=== PATIENT | female | born 1955 | race Caucasian/White ===

== ENCOUNTER 2019-05-01 15:11 | Emergency (ER) | payer MEDICAID ==
[~2019-05-01] VITALS: Ht 165.1 cm; Wt 53.5 kg
[2019-05-01 15:20] VITALS: BP 141/90
--- NOTE | 2019-05-01 15:31 | NUR ---
QING CLEMENT AT BEDSIDE FOR EVAL.
[2019-05-01] MEDS ORDERED: TRAMADOL HCL 50 MG TABLET ONE (15:40)
--- NOTE | 2019-05-01 15:45 | NUR ---
SAMPLE MAKER HAND AT BEDSIDE FOR XRAY.
[2019-05-01] MEDS ORDERED: TRAMADOL HCL 50 MG TABLET PO ONE (16:00)
--- NOTE | 2019-05-01 16:56 | NUR ---
CLINT WRAP APPLIED TO LEFT KNEE BY CATH LAB TECHNOLOGIST.
== END 2019-05-01 16:58 | disposition home or self-care (01) ==
LOC: ER 15:14
DX: S80.212A Abrasion, left knee, initial encounter (principal); M25.532 Pain in left wrist; M25.512 Pain in left shoulder; M06.9 Rheumatoid arthritis, unspecified; Z88.0 Allergy status to penicillin; W01.0XXA Fall on same level from slipping, tripping and stumbling without subsequent striking against object, initial encounter; Y93.89 Activity, other specified; Y92.89 Other specified places as the place of occurrence of the external cause; Y99.8 Other external cause status
CPT/HCPCS: 73030-TC; 73110; 73564-TC

== ENCOUNTER 2019-05-18 14:22 | Emergency (ER) | payer MEDICAID ==
--- NOTE | 2019-05-18 14:22 | NUR ---
PT CALLED TO TRIAGE, PT NOT IN WAITING ROOM
[2019-05-18] MEDS ORDERED: methylPREDNISolone SOD SUCC 125 MG/2ML VIAL IM ONE (16:00)
[2019-05-18] MEDS ORDERED: diphenhydrAMINE HCL 50 MG CAPSULE PO ONE (16:00)
[2019-05-18] MEDS ORDERED: FAMOTIDINE (20 MG) 20 MG TABLET PO ONE (16:00)
[2019-05-18] MEDS ORDERED: FAMOTIDINE (20 MG) 20 MG TABLET ONE (16:12)
[2019-05-18] MEDS ORDERED: diphenhydrAMINE HCL 50 MG CAPSULE ONE (16:12)
[2019-05-18] MEDS ORDERED: methylPREDNISolone SOD SUCC 125 MG/2ML VIAL ONE (16:12)
== END 2019-05-18 16:56 | disposition home or self-care (01) ==
LOC: ER 14:33
DX: R21 Rash and other nonspecific skin eruption (principal); M06.9 Rheumatoid arthritis, unspecified; Z88.0 Allergy status to penicillin
CPT/HCPCS: 96372; 99283; J2930; Q0163

== ENCOUNTER 2019-08-04 09:58 | Emergency (ER) | payer MEDICAID ==
[~2019-08-04] VITALS: Ht 157.5 cm; Wt 63.5 kg
[2019-08-04 10:04] VITALS: BP 124/82
--- NOTE | 2019-08-04 10:12 | NUR ---
Patient discharged to home in stable condition. Written and verbal after care instructions given. Patient verbalizes understanding of instruction.
== END 2019-08-04 10:12 | disposition home or self-care (01) ==
LOC: ER 09:58
DX: G89.29 Other chronic pain (principal); G35 Multiple sclerosis; Z76.0 Encounter for issue of repeat prescription; Z88.0 Allergy status to penicillin

== ENCOUNTER 2021-05-16 11:00 | Emergency (ER) | payer MEDICAID ==
[~2021-05-16] VITALS: Ht 165.1 cm; Wt 53.5 kg
--- NOTE | 2021-05-16 11:05 | NUR ---
BIBS THIS 65YO FEMALE WITH CHIEF COMPLAINT OF LEFT FLANK PAIN FOR 2 WEEKS. PT IS VITALLY STABLE, NKA, NEVER HAD COVID VACCINATION.
--- NOTE | 2021-05-16 11:15 | NUR ---
Dr Mack at for eval.
--- NOTE | 2021-05-16 11:30 | NUR ---
URINE COLLECTED AND SENT TO LAB
--- NOTE | 2021-05-16 11:47 | NUR ---
IV ESTABLISHED L WRSIT 20G. LABS DRAWN AND SENT. CONVERTED TO SALINE LOCK.
[2021-05-16 12:01] LABS: BASOPHILS # (AUTO) 0.1 K/uL (0.0-0.2); BASOPHILS % (AUTO) 0.5 % (0.0-2.0); EOSINOPHILS % (AUTO) 1.1 % (0.0-6.0); HEMATOCRIT 35 % (33-45); HEMOGLOBIN 11.5 g/dL (11.5-14.8); LYMPHOCYTES # (AUTO) 1.7 K/uL (0.8-4.8); LYMPHOCYTES % (AUTO) 15.9 % (20.0-44.0); MEAN CORPUSCULAR HGB CONC 33 g/dl (31.0-36.0); MEAN CORPUSCULAR VOLUME 89 fL (82-100); MONOCYTES # (AUTO) 0.8 K/uL (0.1-1.30); MONOCYTES % (AUTO) 8.1 % (2.0-12.0); NEUTROPHILS # (AUTO) 7.8 K/uL (1.8-8.9); NEUTROPHILS % (AUTO) 74.4 % (43.0-81.0); PLATELET COUNT (AUTO) 262 K/uL (150-450); WHITE BLOOD COUNT (AUTO) 10.5 K/uL (4.3-11.0)
[2021-05-16 12:22] LABS: CALCIUM, SERUM 8.8 mg/dL (8.5-10.1); CREATININE 0.7 mg/dL (0.6-1.3); POTASSIUM 4.3 mmol/L (3.5-5.1)
[2021-05-16 12:44] LABS: BILIRUBIN,URINE NEGATIVE (NEGATIVE); COLOR,URINE YELLOW (YELLOW); LEUKOCYTE ESTERASE ,URINE TRACE (NEGATIVE); NITRITE, URINE NEGATIVE (NEGATIVE); PH,URINE 5.5 (5.0-8.0); PROTEIN,URINE NEGATIVE (NEGATIVE); UGLUCOSE NEGATIVE (NEGATIVE); UROBILINOGEN,URINE 0.2 EU/dL (0.2)
[2021-05-16 13:16] LABS: BACTERIA,URINE Moderate /HPF (None Seen); HYALINE CASTS, URINE Few /LPF (None Seen); RBC,URINE 0-2 /HPF (0-2); SQUAMOUS EPITHELIAL CELL,UR Few /HPF (None Seen); WBC,URINE 0-3 /HPF (0-3)
--- NOTE | 2021-05-16 13:17 | NUR ---
IV removed. Catheter intact and site benign. Pressure and 4x4 applied to site. No bleeding noted.Patient discharged to home in stable condition. Written and verbal after care instructions given. Patient verbalizes understanding of instruction.
[2021-05-16 13:18] VITALS: BP 119/82
== END 2021-05-16 13:18 | disposition home or self-care (01) ==
LOC: ER 11:04
DX: R10.30 Lower abdominal pain, unspecified (principal); G35 Multiple sclerosis; M06.9 Rheumatoid arthritis, unspecified; G89.29 Other chronic pain; Z90.710 Acquired absence of both cervix and uterus; Z90.89 Acquired absence of other organs; Z88.0 Allergy status to penicillin
CPT/HCPCS: 36415; 80048-TC; 81001; 85025-TC; 87086-TC; 87186-TC

== ENCOUNTER 2021-05-25 11:09 | Inpatient (IN) | payer MEDICAID ==
[~2021-05-25] VITALS: Ht 165.1 cm; Wt 56.2 kg
--- NOTE | 2021-05-25 11:40 | NUR ---
PT CAME TO ER C/O WORSENING ABDOMINAL DISTENTION/DISCOMFORT AND FLANK PAIN X 1 MONTH, WORSE IN THE PAST 5 DAYS. PT REPORTS THAT IT IS CAUSING HER SOB. PT WAS SEEN HERE FOR SAME REASON 1 WEEK AGO. DENIES N/V. REPORTS "STOOL HAS TURNED YELLOWISH." AAOX4, BREATHING EVEN AND UNLABORED POX 97-98% ON RA. WILL CONTINUE TO MONITOR.
--- NOTE | 2021-05-25 11:45 | NUR ---
URINE SAMPLE OBTAINED AND SENT TO LAB
[2021-05-25 12:20] LABS: BASOPHILS % (AUTO) 0.2 % (0.0-2.0); EOSINOPHILS % (AUTO) 1.1 % (0.0-6.0); HEMATOCRIT 38 % (33-45); HEMOGLOBIN 12.4 g/dL (11.5-14.8); LYMPHOCYTES # (AUTO) 1.7 K/uL (0.8-4.8); LYMPHOCYTES % (AUTO) 16.5 % (20.0-44.0); MEAN CORPUSCULAR HGB CONC 33 g/dl (31.0-36.0); MEAN CORPUSCULAR VOLUME 88 fL (82-100); MONOCYTES # (AUTO) 0.9 K/uL (0.1-1.30); MONOCYTES % (AUTO) 8.6 % (2.0-12.0); NEUTROPHILS # (AUTO) 7.4 K/uL (1.8-8.9); NEUTROPHILS % (AUTO) 73.6 % (43.0-81.0); PLATELET COUNT (AUTO) 305 K/uL (150-450); RED BLOOD CELL COUNT(AUTO) 4.26 MIL/uL (4.0-5.2); WHITE BLOOD COUNT (AUTO) 10.1 K/uL (4.3-11.0)
[2021-05-25 12:27] LABS: BILIRUBIN,URINE NEGATIVE (NEGATIVE); COLOR,URINE DARK YELLOW (YELLOW); LEUKOCYTE ESTERASE ,URINE SMALL (NEGATIVE); NITRITE, URINE NEGATIVE (NEGATIVE); PH,URINE 5.5 (5.0-8.0); PROTEIN,URINE NEGATIVE (NEGATIVE); UGLUCOSE NEGATIVE (NEGATIVE); UROBILINOGEN,URINE 0.2 EU/dL (0.2)
[2021-05-25 12:42] LABS: CALCIUM, SERUM 10.3 mg/dL (8.5-10.1); CREATININE 0.8 mg/dL (0.6-1.3); POTASSIUM 4.2 mmol/L (3.5-5.1)
[2021-05-25 12:49] LABS: ALBUMIN 2.9 g/dL (3.4-5.0); BILIRUBIN,DIRECT 0.2 mg/dL (0.0-0.2); BILIRUBIN,TOTAL 0.5 mg/dL (0.2-1.0); TOTAL PROTEIN, SERUM 7.7 g/dL (6.4-8.2)
[2021-05-25 12:51] LABS: BACTERIA,URINE Few /HPF (None Seen); RBC,URINE 0-2 /HPF (0-2); SQUAMOUS EPITHELIAL CELL,UR Few /HPF (None Seen); WBC,URINE 20-30 /HPF (0-3)
--- NOTE | 2021-05-25 13:25 | NUR ---
PT TAKEN TO CT VIA TERI
[2021-05-25] MEDS ORDERED: CT SWABBABLE VALVE TRANS SET 1 EA INFUS.SET MC ONE (13:28)
[2021-05-25] MEDS ORDERED: IOHEXOL-300 100 ML VIAL IV ONE (13:28)
[2021-05-25] MEDS ORDERED: IV NS 0.9% 250 ML IV ONE (13:28)
--- NOTE | 2021-05-25 14:30 | NUR ---
MOVE SHEET SUBMITTED AND CALLED FOR MS BED.
--- NOTE | 2021-05-25 14:53 | NUR ---
[facility] CALLED DRY CURE WORKER PAGED.
[2021-05-25] MEDS ORDERED: OXYC5CAP18 PO (15:12)
[2021-05-25] MEDS ORDERED: MAGN84TA PO (15:12)
[2021-05-25] MEDS ORDERED: CALC500T52 PO (15:12)
[2021-05-25] MEDS ORDERED: CHOL100043 PO (15:12)
[2021-05-25] MEDS ORDERED: ZINC50TA69 PO (15:12)
[2021-05-25] MEDS ORDERED: MULT-1200 PO (15:12)
[2021-05-25] MEDS ORDERED: CYCL15CA23 PO (15:12)
[2021-05-25] MEDS ORDERED: ASPI-1420 PO (15:12)
[2021-05-25] MEDS ORDERED: OMEG1CAP PO (15:12)
[2021-05-25] MEDS ORDERED: CYAN-51 PO (15:12)
--- NOTE | 2021-05-25 15:12 | NUR ---
COVID SAMPLE OBTAINED AND SENT TO LAB
--- NOTE | 2021-05-25 17:27 | NUR ---
pt laying in bed, comfort measures in place. needs met
--- NOTE | 2021-05-25 18:04 | NUR ---
PT LAYING IN BED, NEEDS MET
[2021-05-25] MEDS ORDERED: ZOLPIDEM TARTRATE 5 MG TABLET PO PRN (18:30)
[2021-05-25] MEDS ORDERED: Z GUARD REMEDY 4 OZ OINT TP PRN (18:30)
[2021-05-25] MEDS ORDERED: ACETAMINOPHEN 325 MG TABLET PO PRN (18:30)
[2021-05-25] MEDS ORDERED: ONDANSETRON HCL/PF 4 MG/2 ML VIAL IVP PRN (18:30)
[2021-05-25] MEDS ORDERED: ENOXAPARIN SODIUM 40 MG/0.4 ML DISP.SYRIN SQ ONE (18:50)
[2021-05-25] MEDS ORDERED: MORPHINE SULFATE INJ 4 MG/ML DISP.SYRIN ONE (18:50)
[2021-05-25] MEDS: ENOXAPARIN SODIUM 40 MG/0.4 ML DISP.SYRIN SQ SCH (19:17)
[2021-05-25] MEDS: MORPHINE SULFATE INJ 2 MG/ML DISP.SYRIN IV PRN (19:43)
--- NOTE | 2021-05-25 20:15 | NUR ---
REPORT GIVEN TO RN
--- NOTE | 2021-05-25 20:53 | NUR ---
PT TRANSFERRED TO FLOOR FOLLOWING ACLS PROCOTOL. PT REMAINED STABLE THROUGHOUT TRANSFER.
[2021-05-25 21:00] VITALS: BP 122/71
--- NOTE | 2021-05-25 21:15 | NUR ---
Received from the ER alert and orientated X$ smiling and joking denies abd pain at this time noted ABD. round and distended BS + via auscultation Stated she is passing "gas" lasy BM 05/24 eating jello and drinking water at this time no nausea admit M/S
[2021-05-25 21:29] VITALS: BP 122/71
[2021-05-26] MEDS: MORPHINE SULFATE INJ 2 MG/ML DISP.SYRIN IV PRN ×2 (03:47→18:15)
--- NOTE | 2021-05-26 04:56 | NUR ---
CLOSING NOTES: ADMITTED 05/25 2114 FROM THE er FROM [facility] c/o abd pain WITH DISTENTION bs + VIA AUSCULTATION LAST BM 05/24 PASSING FLATUS NOTES SUGGEST POSSIBLE METASTATIC CA LESIONS SEEN ON THE LIVER MEDICATED x1 WITH MORPHINE 2 MG IV @0400 FOR ABD PAIN AND EFFECTIVE EATING JELLO AND DRINKING WATER W/O NAUSEA OR VOMITING SHE IS ALERT AND ORIENTATED X4 COOPERATIVE
[2021-05-26 06:28] LABS: BASOPHILS # (AUTO) 0.1 K/uL (0.0-0.2); BASOPHILS % (AUTO) 0.6 % (0.0-2.0); EOSINOPHILS % (AUTO) 1.4 % (0.0-6.0); HEMATOCRIT 33 % (33-45); HEMOGLOBIN 11.1 g/dL (11.5-14.8); LYMPHOCYTES # (AUTO) 1.7 K/uL (0.8-4.8); LYMPHOCYTES % (AUTO) 17.5 % (20.0-44.0); MEAN CORPUSCULAR HGB CONC 34 g/dl (31.0-36.0); MEAN CORPUSCULAR VOLUME 87 fL (82-100); MONOCYTES % (AUTO) 10.2 % (2.0-12.0); NEUTROPHILS # (AUTO) 6.8 K/uL (1.8-8.9); NEUTROPHILS % (AUTO) 70.3 % (43.0-81.0); PLATELET COUNT (AUTO) 263 K/uL (150-450); RED BLOOD CELL COUNT(AUTO) 3.79 MIL/uL (4.0-5.2); WHITE BLOOD COUNT (AUTO) 9.7 K/uL (4.3-11.0)
[2021-05-26 06:57] LABS: CALCIUM, SERUM 9.7 mg/dL (8.5-10.1); CREATININE 0.7 mg/dL (0.6-1.3); MAGNESIUM 2.2 mg/dL (1.8-2.4); PHOSPHORUS 3.7 mg/dL (2.5-4.9); POTASSIUM 4.2 mmol/L (3.5-5.1)
--- NOTE | 2021-05-26 07:54 | NUR ---
MS RN OPENING NOTES Pt IS AWAKE IN BED. A/Ox4. BREATHING IS EVEN AND UNLABORED ON ROOM AIR. NO COMPLAINTS OF PAIN AT THIS TIME. NO SIGNS OF DISTRESS. IV ACCESS ON L AC IS PATENT AND INTACT. SAFETY MEASURES ARE IN PLACE: BED IS LOCKED AND IN LOWEST POSITION. SIDE RAILS UPx2. CALL LIGHT AND BED SIDE TABLE ARE WITHIN REACH. WILL CONTINUE TO MONITOR
[2021-05-26 08:00] VITALS: BP 116/60
[2021-05-26] MEDS: PANTOPRAZOLE 40 MG TABLET.DR PO SCH (08:05)
[2021-05-26] MEDS ORDERED: CT SWABBABLE VALVE TRANS SET 1 EA INFUS.SET MC ONE (13:22)
[2021-05-26] MEDS ORDERED: IOHEXOL-300 100 ML VIAL IV ONE (13:22)
[2021-05-26] MEDS ORDERED: IV NS 0.9% 250 ML IV ONE (13:22)
[2021-05-26 14:05] LABS: IRON, SERUM 41 ug/dl (50-175); TOTAL IRON BINDING CAPACITY 270 ug/dl (250-450)
[2021-05-26 14:20] LABS: FERRITIN 360 ng/mL (8-388)
[2021-05-26 16:00] VITALS: BP 108/61
--- NOTE | 2021-05-26 18:26 | NUR ---
MS RN CLOSING NOTES Pt IS AWAKE IN BED. A/Ox4. BREATHING ON ROOM AIR AND TOLERATING WELL AT THIS TIME. Pt HAD A COMPLAINT OF PAIN 9/10 AND MORPHINE 2mg WAS ADMINISTERED. IV ACCESS ON L AC IS PATENT AND INTACT. SAFETY MEASURES ARE IN PLACE: BED IS LOCKED AND IN LOWEST POSITION, SIDE RAILS UPx2, CALL LIGHT AND BED SIDE TABLE ARE WITHIN REACH. WILL ENDORSE TO ONCOMING SHIFT.
--- NOTE | 2021-05-26 19:20 | NUR ---
MS RN OPENING NOTES: RECEIVED PATIENT IN BED, AWAKE, A/O X4. NO S/S OF DISTRESS NOTED. NO COMPLAIN OF PAIN. CALL LIGHT WITHIN REACH. BED IN LOWEST AND LOCKED POSITION.
[2021-05-26 20:00] VITALS: BP 108/61
[2021-05-26] MEDS: ENOXAPARIN SODIUM 40 MG/0.4 ML DISP.SYRIN SQ SCH (20:16)
[2021-05-26] MEDS: MAG HYDROX/AL HYDROX/SIMETH 30 ML UDC PO PRN (22:16)
[2021-05-27] MEDS: HYDROCODONE/APAP 5/325MG TABLET PO PRN (03:29)
[2021-05-27 04:09] LABS: AFP, TUMOR MARKER 3.1 ng/mL (0.0-8.3)
[2021-05-27 05:11] LABS: CARBOHYDRATE AG 19-9 112 U/mL (0-35)
[2021-05-27 07:09] LABS: IMMUNOGLOBULIN A, SERUM 280 mg/dL (87-352); IMMUNOGLOBULIN G, SERUM 1026 mg/dL (586-1602); IMMUNOGLOBULIN M, SERUM 79 mg/dL (26-217)
[2021-05-27 07:20] LABS: ALBUMIN 2.5 g/dL (3.4-5.0); BILIRUBIN,DIRECT 0.2 mg/dL (0.0-0.2); BILIRUBIN,TOTAL 0.5 mg/dL (0.2-1.0); CALCIUM, SERUM 9.9 mg/dL (8.5-10.1); CREATININE 0.7 mg/dL (0.6-1.3); MAGNESIUM 2.5 mg/dL (1.8-2.4); PHOSPHORUS 3.4 mg/dL (2.5-4.9); POTASSIUM 4.1 mmol/L (3.5-5.1)
[2021-05-27 07:23] LABS: BASOPHILS % (AUTO) 0.4 % (0.0-2.0); EOSINOPHILS % (AUTO) 1.3 % (0.0-6.0); HEMATOCRIT 34 % (33-45); HEMOGLOBIN 11.3 g/dL (11.5-14.8); LYMPHOCYTES # (AUTO) 1.9 K/uL (0.8-4.8); LYMPHOCYTES % (AUTO) 18.6 % (20.0-44.0); MEAN CORPUSCULAR HGB CONC 34 g/dl (31.0-36.0); MEAN CORPUSCULAR VOLUME 88 fL (82-100); MONOCYTES # (AUTO) 0.9 K/uL (0.1-1.30); MONOCYTES % (AUTO) 9.1 % (2.0-12.0); NEUTROPHILS # (AUTO) 7.2 K/uL (1.8-8.9); NEUTROPHILS % (AUTO) 70.6 % (43.0-81.0); PLATELET COUNT (AUTO) 264 K/uL (150-450); RED BLOOD CELL COUNT(AUTO) 3.82 MIL/uL (4.0-5.2); WHITE BLOOD COUNT (AUTO) 10.2 K/uL (4.3-11.0)
[2021-05-27 08:00] VITALS: BP 127/62
[2021-05-27] MEDS: MORPHINE SULFATE INJ 2 MG/ML DISP.SYRIN IV PRN ×4 (08:13→22:18)
[2021-05-27] MEDS: PANTOPRAZOLE 40 MG TABLET.DR PO SCH (08:14)
[2021-05-27 10:08] LABS: *SPE A/G RATIO 0.8 (0.7-1.7); *SPE ALPHA-1-GLOBULIN 0.4 g/dL (0.0-0.4); *SPE ALPHA-2-GLOBULIN 0.8 g/dL (0.4-1.0); *SPE BETA GLOBULIN 1.3 g/dL (0.7-1.3); *SPE M-SPIKE Not Observed g/dL (Not Observed)
[2021-05-27] MEDS: FERROUS SULFATE (325 MG) 325 MG/TAB TABLET PO SCH ×2 (11:48→16:57)
--- NOTE | 2021-05-27 16:09 | NUR ---
MS/RN OPENING NOTE RECEIVED PATIENT IN BED, A/O X4, RESPONDS TO ALL STIMULI. IN NO ACUTE DISTRESS OBSERVED. RESPIRATORY EVEN AND UNLABORED ON ROOM AIR, NO SOB. PATIENT IS AMBULATORY. SKIN IS WARM TO TOUCH, CLEAN/DRY, IV SITE ON LEFT AC #22G IS INTACT AND PATENT ON SALINE LOCK. ABDOMINAL DISTENTION NOTED. ELEVATED HOB TO ENSURE AIRWAY AND ASPIRATION PRECAUTION, ALSO LOWER POSITION OF THE BED FOR SAFETY. CALL LIGHT WITHIN REACH, WILL CONTINUE TO MONITOR.
[2021-05-27 16:22] VITALS: BP 118/60
--- NOTE | 2021-05-27 19:01 | NUR ---
MS/RN CLOSING NOTE PATIENT IN BED, A/O X4, RESPONDS TO ALL STIMULI. IN NO ACUTE DISTRESS OBSERVED. RESPIRATORY EVEN AND UNLABORED ON ROOM AIR, NO SOB. PATIENT IS AMBULATORY. SKIN IS WARM TO TOUCH, CLEAN/DRY, IV SITE ON LEFT AC #22G IS INTACT AND PATENT ON SALINE LOCK. ABDOMINAL DISTENTION NOTED. PATIENT'S PAIN CONTROLLED BY MORPHINE PRN PAIN. ALL NEEDS MET. ELEVATED HOB TO ENSURE AIRWAY AND ASPIRATION PRECAUTION, ALSO LOWER POSITION OF THE BED FOR SAFETY. CALL LIGHT WITHIN REACH, WILL ENDORSE TO THE NEXT SHIFT FOR KATY.
--- NOTE | 2021-05-27 19:15 | NUR ---
MS RN OPENING NOTES: RECEIVED PATIENT RESTING IN BED, AWAKE, A/O X4. NO S/S OF DISTRESS NOTED. NO COMPLAIN OF PAIN. CALL LIGHT WITHIN REACH. BED IN LOWEST AND LOCKED POSITION. WILL BE NPO POST MN EXCEPT MEDS PATIENT AWARE, STEAM AND POWER SUPERVISOR INFORMED.
[2021-05-27 20:00] VITALS: BP 106/54
[2021-05-27] MEDS: MAGNESIUM HYDROXIDE 30 ML UDC PO PRN (20:16)
[2021-05-27] MEDS: ENOXAPARIN SODIUM 40 MG/0.4 ML DISP.SYRIN SQ SCH (20:17)
[2021-05-28] MEDS: HYDROCODONE/APAP 5/325MG TABLET PO PRN ×3 (02:14→18:35)
[2021-05-28] MEDS: MORPHINE SULFATE INJ 2 MG/ML DISP.SYRIN IV PRN ×4 (07:01→20:00)
--- NOTE | 2021-05-28 07:30 | NUR ---
RN NOTES RECEIVED PATIENT IN BED AWAKE. ALERT AND ORIENTED TIMES 4. NO PAIN NOTED. NO RESPIRATORY DISTRESS NOTED. ON ROOM AIR. ABLE TO MAKE NEEDS KNOWN. IV SITE ON THE LEFT AC # 22 INTACT. NPO FOR RENAL US FOR THIS MORNING. BED IN THE LOWEST POSITION AND LOCKED. TABLE AND CALL LIGHT IN REACH. WILL CONTINUE TO MONITOR.
[2021-05-28] MEDS: PANTOPRAZOLE 40 MG TABLET.DR PO SCH (07:35)
[2021-05-28 08:00] VITALS: BP 118/68
[2021-05-28 08:43] LABS: BASOPHILS % (AUTO) 0.5 % (0.0-2.0); EOSINOPHILS % (AUTO) 1.1 % (0.0-6.0); HEMATOCRIT 35 % (33-45); HEMOGLOBIN 11.6 g/dL (11.5-14.8); LYMPHOCYTES # (AUTO) 1.8 K/uL (0.8-4.8); MEAN CORPUSCULAR HGB CONC 33 g/dl (31.0-36.0); MEAN CORPUSCULAR VOLUME 88 fL (82-100); MONOCYTES # (AUTO) 1.1 K/uL (0.1-1.30); MONOCYTES % (AUTO) 11.1 % (2.0-12.0); NEUTROPHILS # (AUTO) 7.3 K/uL (1.8-8.9); NEUTROPHILS % (AUTO) 70.3 % (43.0-81.0); PLATELET COUNT (AUTO) 259 K/uL (150-450); WHITE BLOOD COUNT (AUTO) 10.3 K/uL (4.3-11.0)
[2021-05-28] MEDS: FERROUS SULFATE (325 MG) 325 MG/TAB TABLET PO SCH ×2 (08:49→17:52)
[2021-05-28 08:57] LABS: CALCIUM, SERUM 10.2 mg/dL (8.5-10.1); CREATININE 0.8 mg/dL (0.6-1.3); MAGNESIUM 2.6 mg/dL (1.8-2.4); PHOSPHORUS 3.4 mg/dL (2.5-4.9); POTASSIUM 4.3 mmol/L (3.5-5.1)
[2021-05-28] MEDS: SULFAMETH/TRIMETH 800/160 MG 1 UDTAB TABLET PO SCH ×2 (13:27→20:07)
[2021-05-28 16:06] VITALS: BP 115/64
[2021-05-28] MEDS: ENSURE ENLIVE CHOC 237 ML CAN PO SCH (17:55)
--- NOTE | 2021-05-28 19:30 | NUR ---
RN CLOSING NOTES PATIENT IN BED AWAKE. ALERT AND ORIENTED TIMES 4. NO PAIN NOTED. NO RESPIRATORY DISTRESS NOTED. ON ROOM AIR. ABLE TO MAKE NEEDS KNOWN. IV SITE ON THE LEFT AC # 22 INTACT. ALL DUE MEDS GIVEN ORDERED. BED IN THE LOWEST POSITION AND LOCKED. TABLE AND CALL LIGHT IN REACH. WILL ENDORSE FOR KATY..
--- NOTE | 2021-05-28 19:38 | NUR ---
MS RN OPENING RECEIVED PATIENT IN BED ON THE PHONE. A/OX4. NO S/S OF APPARENT DISTRESS. NO C/O PAIN AT THIS TIME. NO FLUIDS RUNNING AT THIS TIME. SAFETY IN PLACE. WILL CONTINUE WITH PATIENT'S CARE PLAN.
[2021-05-28 20:00] VITALS: BP 104/59
[2021-05-28] MEDS: ENOXAPARIN SODIUM 40 MG/0.4 ML DISP.SYRIN SQ SCH (20:07)
[2021-05-28] MEDS: MAGNESIUM HYDROXIDE 30 ML UDC PO PRN (20:12)
[2021-05-29] MEDS: MORPHINE SULFATE INJ 2 MG/ML DISP.SYRIN IV PRN ×5 (01:57→20:34)
[2021-05-29] MEDS: HYDROCODONE/APAP 5/325MG TABLET PO PRN ×4 (04:43→22:32)
[2021-05-29 06:07] LABS: BASOPHILS # (AUTO) 0.1 K/uL (0.0-0.2); BASOPHILS % (AUTO) 0.6 % (0.0-2.0); EOSINOPHILS % (AUTO) 1.1 % (0.0-6.0); HEMATOCRIT 35 % (33-45); HEMOGLOBIN 11.5 g/dL (11.5-14.8); LYMPHOCYTES # (AUTO) 1.7 K/uL (0.8-4.8); LYMPHOCYTES % (AUTO) 16.6 % (20.0-44.0); MEAN CORPUSCULAR HGB CONC 33 g/dl (31.0-36.0); MEAN CORPUSCULAR VOLUME 88 fL (82-100); MONOCYTES % (AUTO) 9.8 % (2.0-12.0); NEUTROPHILS # (AUTO) 7.5 K/uL (1.8-8.9); NEUTROPHILS % (AUTO) 71.9 % (43.0-81.0); PLATELET COUNT (AUTO) 254 K/uL (150-450); RED BLOOD CELL COUNT(AUTO) 3.96 MIL/uL (4.0-5.2); WHITE BLOOD COUNT (AUTO) 10.5 K/uL (4.3-11.0)
--- NOTE | 2021-05-29 06:46 | NUR ---
MS RN CLOSING NOTE PATIENT IN BED WITH EYES CLOSE, A/OX4. NO S/S OF APPARENT DISTRESS ON ROOM AIR. PAIN MANAGED WITH MEDICATIONS. NO FLUIDS RUNNING AT THIS TIME. ALL NEEDS ATTENDED. ALL SCHEDULED MEDICATIONS ADMINISTERED. NO SIGNIFICANT CHANGE SINCE LAST ENDORSEMENT. SAFETY KEPT IN PLACE THE WHOLE SHIFT. WILL ENDORSE TO MORNING SHIFT RN FOR CONTINUITY OF CARE.
--- NOTE | 2021-05-29 07:30 | NUR ---
MS RN NOTES RECEIVED PATIENT IN BED AWAKE. ALERT AND ORIENTED TIMES 4. NO PAIN NOTED. NO RESPIRATORY DISTRESS NOTED. ON ROOM AIR. ABLE TO MAKE NEEDS KNOWN. IV SITE ON THE LEFT AC # 22 INTACT. BED IN THE LOWEST POSITION AND LOCKED. TABLE AND CALL LIGHT IN REACH. WILL CONTINUE TO MONITOR.
[2021-05-29] MEDS: PANTOPRAZOLE 40 MG TABLET.DR PO SCH (07:44)
[2021-05-29 07:47] LABS: CALCIUM, SERUM 10.1 mg/dL (8.5-10.1); CREATININE 0.9 mg/dL (0.6-1.3); MAGNESIUM 2.9 mg/dL (1.8-2.4); PHOSPHORUS 3.4 mg/dL (2.5-4.9); POTASSIUM 4.5 mmol/L (3.5-5.1)
[2021-05-29 08:22] VITALS: BP 126/60
[2021-05-29] MEDS: ENSURE ENLIVE CHOC 237 ML CAN PO SCH ×3 (09:05→17:26)
[2021-05-29] MEDS: SULFAMETH/TRIMETH 800/160 MG 1 UDTAB TABLET PO SCH ×2 (09:07→20:34)
[2021-05-29] MEDS: FERROUS SULFATE (325 MG) 325 MG/TAB TABLET PO SCH ×2 (09:07→16:20)
[2021-05-29 16:37] VITALS: BP 112/60
--- NOTE | 2021-05-29 18:53 | NUR ---
MS RN CLOSING NOTES PATIENT IN BED AWAKE. ALERT AND ORIENTED TIMES 4. NO PAIN NOTED. NO RESPIRATORY DISTRESS NOTED. ON ROOM AIR. ABLE TO MAKE NEEDS KNOWN. IV SITE ON THE LEFT AC # 22 INTACT. BED IN THE LOWEST POSITION AND LOCKED. TABLE AND CALL LIGHT IN REACH. ALL DUE MEDS GIVEN ORDERED. WILL ENDORSE FOR KATY..
[2021-05-29 20:00] VITALS: BP 122/74
[2021-05-29] MEDS: ENOXAPARIN SODIUM 40 MG/0.4 ML DISP.SYRIN SQ SCH ×2 (20:00→20:35)
[2021-05-30] MEDS: MORPHINE SULFATE INJ 2 MG/ML DISP.SYRIN IV PRN ×7 (00:35→20:24)
--- NOTE | 2021-05-30 05:56 | NUR ---
MS RN NOTES AWAKE & RESPONSIVE. NOT IN ANY DISTRESS. NO SOB NOTED. DENIES ANY PAIN OR DISCOMFORT AT THIS TIME. WITH IV-HL PATENT & INTACT. MONITORED ACCORDINGLY. CALL LIGHT WITHIN REACH. BED IN LOWEST POSITION. SR UP X 2 FOR SAFETY. WILL ENDORSE TO NEXT SHIFT.
[2021-05-30 05:59] LABS: BASOPHILS # (AUTO) 0.1 K/uL (0.0-0.2); BASOPHILS % (AUTO) 0.5 % (0.0-2.0); EOSINOPHILS % (AUTO) 1.2 % (0.0-6.0); HEMATOCRIT 33 % (33-45); HEMOGLOBIN 11.1 g/dL (11.5-14.8); LYMPHOCYTES # (AUTO) 1.9 K/uL (0.8-4.8); MEAN CORPUSCULAR HGB CONC 33 g/dl (31.0-36.0); MEAN CORPUSCULAR VOLUME 87 fL (82-100); MONOCYTES # (AUTO) 1.1 K/uL (0.1-1.30); MONOCYTES % (AUTO) 9.7 % (2.0-12.0); NEUTROPHILS # (AUTO) 7.8 K/uL (1.8-8.9); NEUTROPHILS % (AUTO) 71.6 % (43.0-81.0); PLATELET COUNT (AUTO) 230 K/uL (150-450); RED BLOOD CELL COUNT(AUTO) 3.82 MIL/uL (4.0-5.2); WHITE BLOOD COUNT (AUTO) 10.9 K/uL (4.3-11.0)
[2021-05-30 07:20] LABS: ALBUMIN 2.6 g/dL (3.4-5.0); BILIRUBIN,DIRECT 0.2 mg/dL (0.0-0.2); BILIRUBIN,TOTAL 0.4 mg/dL (0.2-1.0); CALCIUM, SERUM 9.7 mg/dL (8.5-10.1); CREATININE 0.8 mg/dL (0.6-1.3); MAGNESIUM 2.4 mg/dL (1.8-2.4); PHOSPHORUS 3.2 mg/dL (2.5-4.9); POTASSIUM 4.2 mmol/L (3.5-5.1); TOTAL PROTEIN, SERUM 7.1 g/dL (6.4-8.2)
[2021-05-30] MEDS: PANTOPRAZOLE 40 MG TABLET.DR PO SCH (07:30)
--- NOTE | 2021-05-30 07:46 | NUR ---
RN OPENING NOTE- RECEIVED PATIENT IN BED AWAKE. AOX4. PT IN PAIN. WAS MEDICATED W MORPHINE TWO HRS AGO. WILL REQUEST MD TO OBTAIN RX CHANGE NO RESPIRATORY DISTRESS NOTED. ON ROOM AIR. ABLE TO MAKE NEEDS KNOWN. IV SITE ON THE LEFT AC # [address] BIOPSY THIS MORNING. BED IN THE LOWEST POSITION AND LOCKED. TABLE AND CALL LIGHT IN REACH. WILL CONTINUE TO MONITOR.
[2021-05-30 08:00] VITALS: BP 116/55
[2021-05-30] MEDS: ENSURE ENLIVE CHOC 237 ML CAN PO SCH ×3 (08:00→16:53)
[2021-05-30] MEDS: SULFAMETH/TRIMETH 800/160 MG 1 UDTAB TABLET PO SCH ×2 (08:05→20:22)
[2021-05-30] MEDS: FERROUS SULFATE (325 MG) 325 MG/TAB TABLET PO SCH ×2 (08:05→16:53)
[2021-05-30] MEDS: MAG HYDROX/AL HYDROX/SIMETH 30 ML UDC PO PRN (08:12)
--- NOTE | 2021-05-30 08:12 | NUR ---
RN NOTE- PT W DYSPEPSIA. CALLED RADIOLOGY AND WAS INFORMED THEY WILL GET HER FOR BIOPSY AROUND NOON. ADMINISTERED MAALOX 30CC
--- NOTE | 2021-05-30 09:24 | NUR ---
RN NOTE- PT PERIPHERAL IV SITE LEAKING. NEW IV 22G PLACED RT WRIST. TOLERATED WELL.
--- NOTE | 2021-05-30 11:09 | NUR ---
RN NOTE- PT TACHY AT 110-118. DR BRANDON ORDERED EKG. ALSO CHANGED MORPHINE TO 2 MG Q2H PRN
[2021-05-30 16:00] VITALS: BP 110/68
[2021-05-30] MEDS ORDERED: MIDAZOLAM HCL 2 MG/2ML VIAL IV PRN (16:00)
[2021-05-30] MEDS ORDERED: NALOXONE PREFILLED SYRINGE 2 MG/2 ML SYRINGE IV PRN (16:00)
[2021-05-30] MEDS ORDERED: FLUMAZENIL 0.5 MG VIAL IV PRN (16:00)
[2021-05-30] MEDS ORDERED: FENTANYL PF 250MCG/5ML AMPUL IV PRN (16:00)
--- NOTE | 2021-05-30 16:31 | NUR ---
RN NOTE- PHONED RADIOLOGY AT 1300 AND 1500. WAS TOLD THEY'D BE UP FOR PT FOR BIOPSY. UPON ARRIVAL IN RADIOLOGY, PT STATED SHE HURT TOO MUCH AND HAD CP. RADIOLOGY STATED THEY'D DO BIOPSY TOMORROW AT 1300. PT EKG ORDERED AND I PHONED RESP TO HAVE EKG STAT. PT GIVEN FLUIDS AND FOOD SHES BEEN NPO SINCE MN.
[2021-05-30] MEDS: HYDROCODONE/APAP 5/325MG TABLET PO PRN ×2 (18:15→23:22)
--- NOTE | 2021-05-30 18:45 | NUR ---
RACHEL NOTE - EKG SINUS TACH FORWARDED TO ,
--- NOTE | 2021-05-30 18:52 | NUR ---
RN CLOSING NOTE-PATIENT IN BED AWAKE. AOX4. PT COMFORTABLE W ALTERNATING MORPHINE AND NORCO. NO RESPIRATORY DISTRESS NOTED. ON ROOM AIR. ABLE TO MAKE NEEDS KNOWN. IV SITE ON THE RT WRIST. #22G. INTACT. PT FOR CT BIOPSY TOMORROW MORNING AT 1100. NPO AFTER MN. . BED IN THE LOWEST POSITION AND LOCKED. TABLE AND CALL LIGHT IN REACH. WILL CONTINUE TO MONITOR.
--- NOTE | 2021-05-30 19:25 | NUR ---
MS RN OPENING NOTES RECEIVED PATIENT IN BED AWAKE. ALERT AND ORIENTED X 4. NO C/O PAIN VERBALIZED AT THIS TIME, PRN NORCO WAS ADMINISTERED BY AM RN AND PER PATIENT IT WAS EFFECTIVE. NO RESPIRATORY DISTRESS NOTED. ON ROOM AIR. ABLE TO MAKE NEEDS KNOWN. IV SITE TO RIGHT WRIST # 22, INTACT. PATIENT IS AMBULATORY/STEADY GAIT. BED IN THE LOWEST POSITION AND LOCKED. TABLE AND CALL LIGHT IN REACH. WILL CONTINUE TO MONITOR.
[2021-05-30 19:50] VITALS: BP 113/56
[2021-05-30 20:00] VITALS: BP 113/56
[2021-05-30] MEDS: ENOXAPARIN SODIUM 40 MG/0.4 ML DISP.SYRIN SQ SCH (20:00)
--- NOTE | 2021-05-30 20:15 | NUR ---
MS RN NOTE PATIENT IS SCHEDULED FOR LIVER BIOPSY ON 05/31/2021 AT 11 AM, PATIENT WILL BE NPO AFTER MIDNIGHT. INFORMED THE PATIENT TO BE NPO AFTER MIDNIGHT AND PATIENT ACKNOWLEDGED IT. WILL CONTINUE TO MONITOR FOR ANY CHANGE OF CONDITION.
--- NOTE | 2021-05-30 20:26 | NUR ---
MS RN NOTE: PAIN PATIENT C/O ABDOMINAL PAIN 12/03 AND REQUESTED TO TAKE MORPHINE. PRN MORPHINE 2 MG IV PRN ADMINISTERED. WILL CONTINUE TO MONITOR THE PATIENT FOR ANY CHANGE OF CONDITION.
--- NOTE | 2021-05-30 20:31 | NUR ---
MS RN NOTE: HELD LOVENOX PATIENT IS SCHEDULED FOR LIVER BIOPSY ON 05/31/2021 AT 11 AM. HELD LOVENOX 40 MG DOSE ALON, CHARGE NURSE MADE AWARE.
--- NOTE | 2021-05-30 21:30 | NUR ---
MS RN NOTE PATIENT IS SLEEPING COMFORTABLY AT THIS TIME, RELAXED, NO C/O PAIN VERBALIZED AT THIS TIME. WILL CONTINUE TO MONITOR FOR ANY CHANGE OF CONDITION.
--- NOTE | 2021-05-30 23:24 | NUR ---
MS RN NOTE: PAIN PATIENT C/O ABDOMINAL PAIN 09/02 AND WANTED TO TAKE NORCO. PRN NORCO 5-325 MG 1 TAB PO ADMINISTERED. WILL REASSESS FOR EFFECTIVENESS.
[2021-05-31] MEDS: MORPHINE SULFATE INJ 2 MG/ML DISP.SYRIN IV PRN ×8 (01:35→21:18)
--- NOTE | 2021-05-31 01:37 | NUR ---
MS RN NOTE: PAIN PATIENT C/O ABDOMINAL PAIN 11/02 AND REQUESTED TO TAKE MORPHINE. PRN MORPHINE 2 MG IV PRN ADMINISTERED. WILL CONTINUE TO MONITOR THE PATIENT FOR ANY CHANGE OF CONDITION.
--- NOTE | 2021-05-31 05:45 | NUR ---
MS RN NOTE: PAIN PATIENT C/O ABDOMINAL PAIN 12/03 AND REQUESTED TO TAKE MORPHINE ONLY AT THIS TIME. PRN MORPHINE 2 MG IV ADMINISTERED. WILL CONTINUE TO MONITOR THE PATIENT FOR ANY CHANGE OF CONDITION.
[2021-05-31 05:55] LABS: BASOPHILS % (AUTO) 0.4 % (0.0-2.0); EOSINOPHILS % (AUTO) 0.6 % (0.0-6.0); HEMATOCRIT 32 % (33-45); HEMOGLOBIN 10.7 g/dL (11.5-14.8); LYMPHOCYTES # (AUTO) 1.7 K/uL (0.8-4.8); LYMPHOCYTES % (AUTO) 15.7 % (20.0-44.0); MEAN CORPUSCULAR HGB CONC 34 g/dl (31.0-36.0); MEAN CORPUSCULAR VOLUME 88 fL (82-100); MONOCYTES # (AUTO) 1.2 K/uL (0.1-1.30); MONOCYTES % (AUTO) 11.1 % (2.0-12.0); NEUTROPHILS # (AUTO) 7.6 K/uL (1.8-8.9); NEUTROPHILS % (AUTO) 72.2 % (43.0-81.0); PLATELET COUNT (AUTO) 227 K/uL (150-450); RED BLOOD CELL COUNT(AUTO) 3.62 MIL/uL (4.0-5.2); WHITE BLOOD COUNT (AUTO) 10.5 K/uL (4.3-11.0)
--- NOTE | 2021-05-31 06:05 | NUR ---
MRI APPROVED. EMBROIDERY FINISHER (ROSA) NOTIFIED VIA TEXT.
--- NOTE | 2021-05-31 07:16 | NUR ---
MS RN OPENING NOTES RECEIVED PATIENT IN BED AWAKE, ALERT AND ORIENTED X 4. ON ROOM AIR WITH NO SIGNS AND SYMPTOMS OF DISTRESS. WITH SOME DISCOMFORT/ PAIN BUT WAS JUST GIVEN PAIN MEDICATION. ABLE TO MAKE NEEDS KNOWN. WITH IV SITE TO RIGHT WRIST # 22, PATENT AND INTACT. PATIENT IS AMBULATORY FOR STANDBY ASSIST. SAFETY MEASURES ENSURED WITH BED IN THE LOWEST POSITION AND LOCKED, SIDERAILS RAISED AND CALL LIGHT WITHIN REACH AT ALL TIMES. WILL CONTINUE TO MONITOR PATIENT.
[2021-05-31 07:44] LABS: ALBUMIN 2.5 g/dL (3.4-5.0); BILIRUBIN,DIRECT 0.2 mg/dL (0.0-0.2); BILIRUBIN,TOTAL 0.3 mg/dL (0.2-1.0); CALCIUM, SERUM 10.1 mg/dL (8.5-10.1); CREATININE 0.9 mg/dL (0.6-1.3); MAGNESIUM 2.5 mg/dL (1.8-2.4); PHOSPHORUS 3.3 mg/dL (2.5-4.9); POTASSIUM 4.3 mmol/L (3.5-5.1); TOTAL PROTEIN, SERUM 6.8 g/dL (6.4-8.2)
[2021-05-31] MEDS: ENSURE ENLIVE CHOC 237 ML CAN PO SCH ×3 (08:00→17:00)
[2021-05-31] MEDS: PANTOPRAZOLE 40 MG TABLET.DR PO SCH (08:31)
[2021-05-31] MEDS: SULFAMETH/TRIMETH 800/160 MG 1 UDTAB TABLET PO SCH ×2 (08:31→20:49)
[2021-05-31] MEDS: FERROUS SULFATE (325 MG) 325 MG/TAB TABLET PO SCH ×2 (08:31→17:56)
[2021-05-31] MEDS: HYDROCODONE/APAP 5/325MG TABLET PO PRN (09:31)
--- NOTE | 2021-05-31 10:36 | NUR ---
MS RN NOTE PATIENT REASSESSED FOR PAIN, WILL UNDERGO NEEDLE BIOPSY OF THE LIVER. GIVEN NORCO BUT INEFFECTIVE. MORPHINE GIVEN PRIOR TO PROCEDURE. PATIENT PICKED UP FOR PROCEDURE ON A WHEELCHAIR, ACCOMPANIED BY NURSE. IN STABLE CONDITION. WILL CONTINUE TO MONITOR PATIENT.
[2021-05-31] MEDS: oxyCODONE/APAP (5/325 MG) 1 UDTAB TABLET PO PRN ×2 (16:37→23:19)
--- NOTE | 2021-05-31 18:51 | NUR ---
MS RN CLOSING NOTES PATIENT IN BED AWAKE, ALERT AND ORIENTED X 4. ON ROOM AIR WITH NO SIGNS AND SYMPTOMS OF DISTRESS. WITH SOME DISCOMFORT/ PAIN BUT WAS JUST GIVEN PAIN MEDICATION. ABLE TO MAKE NEEDS KNOWN. WITH IV SITE TO RIGHT WRIST # 22, PATENT AND INTACT. PATIENT IS AMBULATORY FOR STANDBY ASSIST. SAFETY MEASURES ENSURED WITH BED IN THE LOWEST POSITION AND LOCKED, SIDERAILS RAISED AND CALL LIGHT WITHIN REACH AT ALL TIMES. WILL ENDORSE TO NEXT SHIFT FOR CONTINUITY OF CARE. PATIENT WITH MORE MANAGEABLE PAIN LEVEL NOW. PATIENT FOR NPO POST MIDNIGHT FOR MRI TOMORROW. WILL ENDORSE ACCORDINGLY.
--- NOTE | 2021-05-31 19:30 | NUR ---
MS RN OPENING NOTES RECEIVED PATIENT IN BED AWAKE. A/O X 4. PT STABLE ON ROOM AIR. NO SOB OR S/S OF RESPIRATORY DISTRESS. IV ACCESS RIGHT WRIST 22 GAUGE, INTACT AND PATENT. SAFETY PRECAUTIONS IN PLACE. BED IN LOWEST LOCKED POSITION, HOB ELEVATED, SIDE RAILS UP X2, AND CALL LIGHT AND TABLE WITHIN REACH. WILL CONTINUE WITH PLAN OF CARE.
[2021-05-31 20:00] VITALS: BP 120/68
[2021-05-31] MEDS: MAGNESIUM HYDROXIDE 30 ML UDC PO PRN (20:50)
--- NOTE | 2021-05-31 20:50 | NUR ---
RN NOTE PT REQUESTED MILK OF MAGNESIA. ADMINISTERED MILK OF MAGNESIA ORDERED. WILL CONTINUE WITH PLAN OF CARE.
[2021-05-31] MEDS: ENOXAPARIN SODIUM 40 MG/0.4 ML DISP.SYRIN SQ SCH (20:51)
--- NOTE | 2021-05-31 21:18 | NUR ---
RN NOTE PT COMPLAINED OF PAIN 8/10 IN THE ABDOMEN. ADMINISTERED MORPHINE SULFATE 2 MG FOR SEVERE PAIN ORDERED. WILL CONTINUE WITH PLAN OF CARE.
--- NOTE | 2021-05-31 23:19 | NUR ---
RN NOTE PT COMPLAINED OF PAIN 11/02. ADMINISTERED PERCOCET 2 TAB FOR SEVERE PAIN ORDERED. WILL CONTINUE WITH PLAN OF CARE.
[2021-06-01] MEDS: MORPHINE SULFATE INJ 2 MG/ML DISP.SYRIN IV PRN ×5 (00:32→23:57)
--- NOTE | 2021-06-01 00:32 | NUR ---
RN NOTE PT STILL COMPLAINING OF PAIN 8/10 OF THE ABDOMEN. ADMINISTERED MORPHINE 2 MG ORDERED FOR BREAKTHROUGH PAIN. WILL CONTINUE WITH PLAN OF CARE.
[2021-06-01] MEDS: MAG HYDROX/AL HYDROX/SIMETH 30 ML UDC PO PRN (05:13)
--- NOTE | 2021-06-01 05:13 | NUR ---
RN NOTE PT STILL COMPLAINING OF PAIN 10/10 OF THE ABDOMEN. ADMINISTERED MORPHINE 2 MG ORDERED FOR SEVERE PAIN. PT ALSO COMPLAINED OF DYSPEPSIA. ADMINISTERED MALOOX ORDERED. WILL CONTINUE WITH PLAN OF CARE.
[2021-06-01] MEDS: oxyCODONE/APAP (5/325 MG) 1 UDTAB TABLET PO PRN ×3 (06:24→20:25)
--- NOTE | 2021-06-01 06:24 | NUR ---
RN NOTE PT COMPLAINED OF PAIN 10/02. ADMINISTERED PERCOCET 1 TAB FOR MODERATE PAIN ORDERED. NPO EXCEPT MEDS STATUS MAINTAINED AT THIS TIME. WILL CONTINUE WITH PLAN OF CARE.
--- NOTE | 2021-06-01 06:40 | NUR ---
MS RN CLOSING NOTES PATIENT IN BED AWAKE. A/O X 4. PT STABLE ON ROOM AIR. NO SOB OR S/S OF RESPIRATORY DISTRESS. IV ACCESS RIGHT WRIST 22 GAUGE, INTACT AND PATENT. ALL NEEDS MET AT THIS TIME. KEPT NPO EXCEPT MEDS AFTER MIDNIGHT. SAFETY PRECAUTIONS IN PLACE AT ALL TIMES. BED IN LOWEST LOCKED POSITION, HOB ELEVATED, SIDE RAILS UP X2, AND CALL LIGHT AND TABLE WITHIN REACH. WILL ENDORSE TO ONCOMING NURSE FOR KATY.
[2021-06-01 06:47] LABS: BASOPHILS # (AUTO) 0.1 K/uL (0.0-0.2); BASOPHILS % (AUTO) 0.5 % (0.0-2.0); EOSINOPHILS % (AUTO) 0.6 % (0.0-6.0); HEMATOCRIT 31 % (33-45); HEMOGLOBIN 10.2 g/dL (11.5-14.8); LYMPHOCYTES # (AUTO) 1.7 K/uL (0.8-4.8); LYMPHOCYTES % (AUTO) 15.1 % (20.0-44.0); MEAN CORPUSCULAR HGB CONC 33 g/dl (31.0-36.0); MEAN CORPUSCULAR VOLUME 87 fL (82-100); MONOCYTES # (AUTO) 1.1 K/uL (0.1-1.30); MONOCYTES % (AUTO) 9.6 % (2.0-12.0); NEUTROPHILS # (AUTO) 8.5 K/uL (1.8-8.9); NEUTROPHILS % (AUTO) 74.2 % (43.0-81.0); PLATELET COUNT (AUTO) 243 K/uL (150-450); RED BLOOD CELL COUNT(AUTO) 3.54 MIL/uL (4.0-5.2); WHITE BLOOD COUNT (AUTO) 11.5 K/uL (4.3-11.0)
[2021-06-01 07:27] LABS: CALCIUM, SERUM 10.3 mg/dL (8.5-10.1); CREATININE 0.9 mg/dL (0.6-1.3); MAGNESIUM 2.7 mg/dL (1.8-2.4); PHOSPHORUS 3.4 mg/dL (2.5-4.9); POTASSIUM 4.2 mmol/L (3.5-5.1)
--- NOTE | 2021-06-01 07:30 | NUR ---
RN OPENING NOTES RECEIVED PATIENT IN BED AWAKE. A/O X4. PATIENT ON 3L OF O2 VIA NC WITH NO S/SX OF RESPIRATORY DISTRESS. NO PAIN VERBALIZED AT THIS TIME. IV R WRIST G#22 INTACT AND PATENT. PATIENT REMAINS NPO EXCEPT MEDS FOR MRI THIS MORNING. PATIENT IS WELL AWARE OF PLAN FOR THE DAY, VERBALIZED UNDERSTANDING OF PROCEDURE AND ALL CONSENTS ARE SIGNED. SAFETY PRECAUTIONS IN PLACE: BED IN LOWEST LOCKED POSITION, HOB ELEVATED, SIDE RAILS UP X2, AND CALL LIGHT WITHIN REACH. WILL CONTINUE PLAN OF CARE
[2021-06-01 08:00] VITALS: BP 102/56
[2021-06-01] MEDS: ENSURE ENLIVE CHOC 237 ML CAN PO SCH ×3 (08:00→17:00)
--- NOTE | 2021-06-01 08:00 | NUR ---
RN NOTES PATIENT IS NPO EXCEPT MEDS PENDING MRI PROCEDURE THIS AM. ENSURE WAS NOT GIVEN.
[2021-06-01] MEDS: FERROUS SULFATE (325 MG) 325 MG/TAB TABLET PO SCH ×2 (08:28→17:34)
[2021-06-01] MEDS: SULFAMETH/TRIMETH 800/160 MG 1 UDTAB TABLET PO SCH ×2 (08:28→20:19)
[2021-06-01] MEDS: PANTOPRAZOLE 40 MG TABLET.DR PO SCH (08:28)
[2021-06-01] MEDS ORDERED: GADOTERATE MEGLUMINE 10 MMOL/20 ML VIAL IV ONE (15:24)
[2021-06-01 16:00] VITALS: BP 113/56
--- NOTE | 2021-06-01 18:45 | NUR ---
RN CLOSING NOTES PATIENT IN BED AWAKE. A/O X4. ON 3L OF O2 VIA NC WITH NO S/SX OF RESPIRATORY DISTRESS. NO PAIN VERBALIZED AT THIS TIME. IV R WRIST G#22 INTACT AND PATENT. PATIENT HAD CT OF ABDOMEN TODAY. NEW ORDER FOR MRI OF THE BRAIN TO BE DONE TOMORROW MORNING. NPO AFTER MIDNIGHT TONIGHT. PATIENT IS AWARE OF PLAN FOR TOMORROW AND CONSENTS TO PROCEDURE. PAIN WAS MANAGEABLE TODAY WITH PRN MEDICATIONS. ALL NEEDS MET AND ORDERS WERE CARRIED OUT. SAFETY PRECAUTIONS IN PLACE: BED IN LOWEST LOCKED POSITION, HOB ELEVATED, SIDE RAILS UP X2, AND CALL LIGHT WITHIN REACH. WILL ENDORSE TO SMALL BATTERY PLATE ASSEMBLER NURSE FOR KATY
--- NOTE | 2021-06-01 19:36 | NUR ---
MS RN OPENING NOTES RECEIVED PATIENT IN BED AWAKE. A/O X 4. PT ON 3 LPM VIA NC, TOLERATING WELL. NO SOB OR S/S OF RESPIRATORY DISTRESS. IV ACCESS RIGHT WRIST 22 GAUGE, INTACT AND PATENT. NO COMPLAINTS OF PAIN OR DISCOMFORT AT THIS TIME. SAFETY PRECAUTIONS IN PLACE. BED IN LOWEST LOCKED POSITION, HOB ELEVATED, SIDE RAILS UP X2, AND CALL LIGHT AND TABLE WITHIN REACH. WILL CONTINUE WITH PLAN OF CARE.
[2021-06-01 20:00] VITALS: BP 98/52
[2021-06-01] MEDS: ENOXAPARIN SODIUM 40 MG/0.4 ML DISP.SYRIN SQ SCH (20:19)
[2021-06-02] MEDS: oxyCODONE/APAP (5/325 MG) 1 UDTAB TABLET PO PRN ×5 (04:13→20:23)
--- NOTE | 2021-06-02 06:49 | NUR ---
MS RN CLOSING NOTES PATIENT IN BED AWAKE. A/O X 4. PT ON 3 LPM VIA NC, TOLERATING WELL. NO SOB OR S/S OF RESPIRATORY DISTRESS. IV ACCESS RIGHT WRIST 22 GAUGE, INTACT AND PATENT. NO COMPLAINTS OF PAIN OR DISCOMFORT AT THIS TIME. ALL NEEDS MET AT THIS TIME. SAFETY PRECAUTIONS IN PLACE AT ALL TIMES. BED IN LOWEST LOCKED POSITION, HOB ELEVATED, SIDE RAILS UP X2, AND CALL LIGHT AND TABLE WITHIN REACH. WILL ENDORSE TO ONCOMING NURSE FOR KATY.
--- NOTE | 2021-06-02 07:25 | NUR ---
MS RN OPENING NOTES RECEIVED PATIENT IN BED AWAKE, ALERT AND ORIENTED X 4. ON ROOM AIR WITH NO SIGNS AND SYMPTOMS OF DISTRESS. PATIENT COMPLAINS OF PAIN, PER BUNCH MAKER NURSE, FARIDEH, PER MD, PATIENT REFUSED MORPHINE BECAUSE OF HER INTENTION TO GO HOME SOON. ABLE TO MAKE NEEDS KNOWN. WITH IV SITE TO RIGHT WRIST # 22, PATENT AND INTACT. PATIENT IS AMBULATORY FOR STANDBY ASSIST. SAFETY MEASURES ENSURED WITH BED IN THE LOWEST POSITION AND LOCKED, SIDERAILS RAISED AND CALL LIGHT WITHIN REACH AT ALL TIMES. WILL CONTINUE TO MONITOR PATIENT.
[2021-06-02] MEDS: MORPHINE SULFATE INJ 2 MG/ML DISP.SYRIN IV PRN (07:38)
[2021-06-02] MEDS: PANTOPRAZOLE 40 MG TABLET.DR PO SCH ×2 (07:39→08:46)
[2021-06-02 08:00] VITALS: BP 114/51
[2021-06-02] MEDS: ENSURE ENLIVE CHOC 237 ML CAN PO SCH ×3 (08:00→16:28)
[2021-06-02] MEDS: ENOXAPARIN SODIUM 40 MG/0.4 ML DISP.SYRIN SQ SCH (08:44)
[2021-06-02] MEDS: FERROUS SULFATE (325 MG) 325 MG/TAB TABLET PO SCH ×2 (08:45→16:26)
[2021-06-02] MEDS ORDERED: FERR325T28 PO (11:53)
[2021-06-02] MEDS ORDERED: OXYC1TAB8 PO (11:53)
--- NOTE | 2021-06-02 12:30 | NUR ---
MS RN NOTE BRAIN MRI DONE. TOLERATED WELL, IN STABLE CONDITION. WILL CONTINUE TO MONITOR PATIENT.
[2021-06-02 15:01] LABS: ALBUMIN 2.7 g/dL (3.4-5.0); CALCIUM, SERUM 9.8 mg/dL (8.5-10.1); CREATININE 1.2 mg/dL (0.6-1.3)
[2021-06-02 16:00] VITALS: BP 101/55
--- NOTE | 2021-06-02 16:15 | NUR ---
MS RN NOTE PATIENT ENDORSED TO RACHEL ARCINIEGA FOR CONTINUITY OF CARE. PATIENT IN STABLE CONDITION.
[2021-06-02] MEDS ORDERED: GADOTERATE MEGLUMINE 10 MMOL/20 ML VIAL IV ONE (16:19)
--- NOTE | 2021-06-02 16:20 | NUR ---
RN CHANGE OF CARE NOTE RECEIVED CHANGE OF CARE REPORT FROM RACHEL COTA. PT AWAKE IN BED, A/O X4. NO S/SX OF ACUTE DISTRESS. NO SOB. WILL CONTINUE WITH PLAN OF CARE.
--- NOTE | 2021-06-02 18:00 | NUR ---
MS DISCHARGE NOTE DISCHARGE INSTRUCTIONS REVIEWED AND SIGNED BY PATIENT. PT INSTRUCTED TO FILL PRESCRIPTION AT PHARMACY, FOLLOW UP WITH SCHEDULED PRIMARY CARE PHYSICIAN ON 06/07/21 @10:00AM, INFORMATION AND CONTACT NUMBER PROVIDED. PT INSTRUCTED TO F/U WITH DR. CARTER IN JUNE, ADDRESS AND INFO PROVIDED. BELONGING REVIEWED WITH PATIENT AND ACCOUNTED FOR; PT SIGNED FORM. PT WILL BE PICKED UP BY INDIRA ALFARO AT 8:30PM-9PM.
--- NOTE | 2021-06-02 19:30 | NUR ---
MS RN OPENING RECEIVED PATIENT IN BED WITH EYES CLOSED, EASY TO AROUSE. A/OX4. PATIENT IN HER OWN CLOTHING ALREADY. NO S/S OF APPARENT DISTRESS ON ROOM AIR AT THIS TIME. PAIN TOLERABLE PER PATIENT. PATIENT DISCHARGE ORDER IN PLACE. PER PATIENT HER BROTHER IS GOING TO PICK HER UP @2114. AWAITING DIAMOND POLISHER.
--- NOTE | 2021-06-02 21:20 | NUR ---
MS RN SUPPLEMENTAL NOTE PATIENT WHEELED DOWN BY DRIER TENDER AT THIS TIME. LEAVING ON A PRIVATE VEHICLE WITH BROTHER, INDIRA. DISCHARGE PACKET GIVEN TO BROTHER PER PATIENT'S REQUEST. A/OX4. NOT EXHIBITING S/S OF APPARENT DISTRESS ON ROOM AIR. PAIN MEDICATION PERCOCET 2 TABS GIVEN PER MD'S ORDER BEFORE DISCHARGE. ID BAND DISCARDED. IV LINE TAKEN OFF. PAPER WORKS SIGNED. PATIENT MEDICALLY STABLE FOR D/C.
== END 2021-06-02 21:20 | disposition home or self-care (01) | DRG 281 ==
LOC: ER 11:10 → TRANSITION 18:57 → MED 20:07
PROVIDERS: ADMIT Student in an Organized Health Care Education/Training Program; ATTEND Nurse Practitioner Acute Care
PROC: 0FB13ZX Excision of Right Lobe Liver, Percutaneous Approach, Diagnostic (ICD-10-PCS; principal; 2021-05-31)
DX: C78.7 Secondary malignant neoplasm of liver and intrahepatic bile duct (principal); E44.0 Moderate protein-calorie malnutrition; C34.32 Malignant neoplasm of lower lobe, left bronchus or lung; E87.1 Hypo-osmolality and hyponatremia; E88.09 Other disorders of plasma-protein metabolism, not elsewhere classified; N39.0 Urinary tract infection, site not specified; B96.20 Unspecified Escherichia coli [E. coli] as the cause of diseases classified elsewhere; D64.9 Anemia, unspecified; G35 Multiple sclerosis; G89.3 Neoplasm related pain (acute) (chronic); G89.4 Chronic pain syndrome; M06.9 Rheumatoid arthritis, unspecified; Z87.891 Personal history of nicotine dependence; J98.19 Other pulmonary collapse; I70.0 Atherosclerosis of aorta; Z90.710 Acquired absence of both cervix and uterus; J43.9 Emphysema, unspecified; R74.01 Elevation of levels of liver transaminase levels; R59.1 Generalized enlarged lymph nodes; N28.1 Cyst of kidney, acquired; Z20.822 Contact with and (suspected) exposure to COVID-19; Z68.20 Body mass index [BMI] 20.0-20.9, adult
CPT/HCPCS: 36415; 70553-TC; 71045-TC; 71260-TC; 74183-TC; 76770-TC; 80048-TC; 80076-TC; 81001; 82040-TC; 82105; 82378; 82728-TC; 82784; 83540-TC; 83690-TC; 83735-TC; 83880; 83970; 84100-TC; 84155; 84165; 84484-TC; 85025-TC; 85610-TC; 85730-TC; 86301; 86304; 86334; 87081-TC; 87086-TC; 87186-TC; 88307-TC; 88333-TC; 88341; 88342; A9575; C9803; G0378; J1650; J2270; J7050; Q9967

== ENCOUNTER 2021-08-02 11:04 | Outpatient (CLI) | payer MEDICARE, OTHER ==
[~2021-08-02 11:04] MED LIST: ASPI-1420 PO; CALC500T52 PO; CHOL100043 PO; CYAN-51 PO; CYCL15CA23 PO; FERR325T28 PO; MAGN84TA PO; MULT-1200 PO; OMEG1CAP PO; OXYC1TAB8 PO; ZINC50TA69 PO
== END 2021-08-02 23:59 | disposition home or self-care (01) ==
LOC: MSC 11:04
PROVIDERS: ATTEND Anesthesiology
DX: C34.90 Malignant neoplasm of unspecified part of unspecified bronchus or lung (principal); G89.3 Neoplasm related pain (acute) (chronic); C79.9 Secondary malignant neoplasm of unspecified site; M54.50 Low back pain, unspecified; F11.20 Opioid dependence, uncomplicated

== ENCOUNTER 2021-09-20 10:10 | Outpatient (CLI) | payer MEDICARE, OTHER | END 2021-09-20 23:59 | disposition home or self-care (01) | LOC: MSC 10:10 | PROVIDERS: ATTEND Anesthesiology | DX: G89.3 Neoplasm related pain (acute) (chronic) (principal); C34.90 Malignant neoplasm of unspecified part of unspecified bronchus or lung; C79.51 Secondary malignant neoplasm of bone; C79.9 Secondary malignant neoplasm of unspecified site; M89.8X9 Other specified disorders of bone, unspecified site; M54.50 Low back pain, unspecified; F11.20 Opioid dependence, uncomplicated ==

== ENCOUNTER 2021-11-01 10:45 | Outpatient (CLI) | payer MEDICARE, OTHER | END 2021-11-01 23:59 | disposition home or self-care (01) | LOC: MSC 10:45 | PROVIDERS: ATTEND Anesthesiology | DX: G89.3 Neoplasm related pain (acute) (chronic) (principal); C34.90 Malignant neoplasm of unspecified part of unspecified bronchus or lung; C79.9 Secondary malignant neoplasm of unspecified site; C79.51 Secondary malignant neoplasm of bone; M89.8X9 Other specified disorders of bone, unspecified site; M54.50 Low back pain, unspecified; F11.20 Opioid dependence, uncomplicated ==

== ENCOUNTER → 2021-11-29 | Outpatient (CLI) | payer MEDICARE, OTHER | END | disposition home or self-care (01) | LOC: MSC 10:00 | PROVIDERS: ATTEND Anesthesiology | DX: G89.3 Neoplasm related pain (acute) (chronic) (principal); C34.90 Malignant neoplasm of unspecified part of unspecified bronchus or lung; C79.9 Secondary malignant neoplasm of unspecified site; C79.51 Secondary malignant neoplasm of bone; M89.8X9 Other specified disorders of bone, unspecified site; M54.50 Low back pain, unspecified; F11.20 Opioid dependence, uncomplicated ==

== ENCOUNTER 2022-01-03 10:04 | Outpatient (CLI) | payer MEDICARE, OTHER | END 2022-01-03 23:59 | disposition home or self-care (01) | LOC: MSC 10:04 | PROVIDERS: ATTEND Anesthesiology | DX: G89.3 Neoplasm related pain (acute) (chronic) (principal); C34.90 Malignant neoplasm of unspecified part of unspecified bronchus or lung; C79.9 Secondary malignant neoplasm of unspecified site; C79.51 Secondary malignant neoplasm of bone; M89.8X9 Other specified disorders of bone, unspecified site; F11.20 Opioid dependence, uncomplicated; M54.50 Low back pain, unspecified; Z90.710 Acquired absence of both cervix and uterus; Z90.722 Acquired absence of ovaries, bilateral ==

== ENCOUNTER 2022-02-07 10:00 | Outpatient (CLI) | payer MEDICARE, OTHER | END 2022-02-07 23:59 | disposition home or self-care (01) | LOC: MSC 10:00 | PROVIDERS: ATTEND Anesthesiology | DX: G89.3 Neoplasm related pain (acute) (chronic) (principal); C34.90 Malignant neoplasm of unspecified part of unspecified bronchus or lung; C79.9 Secondary malignant neoplasm of unspecified site; C79.51 Secondary malignant neoplasm of bone; M89.8X9 Other specified disorders of bone, unspecified site; M54.50 Low back pain, unspecified; F11.20 Opioid dependence, uncomplicated; Z90.710 Acquired absence of both cervix and uterus; Z90.722 Acquired absence of ovaries, bilateral ==

== ENCOUNTER 2022-03-06 14:02 | Inpatient (IN) | payer MEDICARE, OTHER ==
[~2022-03-06] VITALS: Ht 165.1 cm; Wt 64.4 kg
--- NOTE | 2022-03-06 14:18 | NUR ---
DR DONAHUE AT BEDSIDE FOR EVAL.
--- NOTE | 2022-03-06 14:22 | NUR ---
DR. CARTER CALLED
--- NOTE | 2022-03-06 14:34 | NUR ---
PT TO ER BED 16, WAS SENT FROM ONCOLOGIST FOR LOW K+ LEVEL. PATIENT WAS S/P CHEMOTHERAPY AND WAS RUNNING OUT OF O2 TANK. PLACED ON MONITOR STABLE VITALSAND IS SATTING AT 100% ON 2L NC. AWAITING MD LOPEZ.
[2022-03-06] MEDS ORDERED: LEVO50TA8 PO (14:50)
[2022-03-06] MEDS ORDERED: IV CHEMO IV (14:50)
[2022-03-06] MEDS ORDERED: FOLI0.4T6 PO (14:50)
[2022-03-06] MEDS ORDERED: OXYC10TA49 PO (14:50)
[2022-03-06] MEDS ORDERED: SENN-261 PO (14:51)
[2022-03-06 15:20] LABS: BASOPHILS % (AUTO) 0.1 % (0.0-2.0); HEMATOCRIT 35 % (33-45); HEMOGLOBIN 11.7 g/dL (11.5-14.8); LYMPHOCYTES # (AUTO) 0.2 K/uL (0.8-4.8); LYMPHOCYTES % (AUTO) 3.9 % (20.0-44.0); MEAN CORPUSCULAR HGB CONC 33 g/dl (31.0-36.0); MEAN CORPUSCULAR VOLUME 93 fL (82-100); MONOCYTES # (AUTO) 0.1 K/uL (0.1-1.30); NEUTROPHILS # (AUTO) 5.5 K/uL (1.8-8.9); PLATELET COUNT (AUTO) 145 K/uL (150-450); RED BLOOD CELL COUNT(AUTO) 3.79 MIL/uL (4.0-5.2); WHITE BLOOD COUNT (AUTO) 5.8 K/uL (4.3-11.0)
[2022-03-06 15:50] LABS: ALANINE AMINOTRANSFERASE 100 U/L (12-78); ALBUMIN 2.8 g/dL (3.4-5.0); ALKALINE PHOSPHATASE 133 U/L (46-116); ASPARTATE AMINOTRANSFERASE 133 U/L (15-37); BILIRUBIN,DIRECT 0.2 mg/dL (0.0-0.2); BILIRUBIN,TOTAL 0.9 mg/dL (0.2-1.0); CALCIUM, SERUM 7.1 mg/dL (8.5-10.1); CHLORIDE 97 mmol/L (98-107); CREATININE 0.6 mg/dL (0.6-1.3); GLUCOSE 98 mg/dL (74-106); SODIUM SERUM 139 mmol/L (136-145); TOTAL PROTEIN, SERUM 6.1 g/dL (6.4-8.2); UREA NITROGEN, BLOOD 14 mg/dL (7-18)
[2022-03-06 15:52] LABS: POTASSIUM 2.4 mmol/L (3.5-5.1)
[2022-03-06 15:53] LABS: CARBON DIOXIDE 41 mmol/L (21-32)
--- NOTE | 2022-03-06 16:12 | NUR ---
[facility] CALLED BOX OFFICE MANAGER PAGED.
--- NOTE | 2022-03-06 16:23 | NUR ---
covid swab collected
[2022-03-06] MEDS: POTASSIUM CL. PREMIX PERIPHER. 50 ML IV SCH ×6 (16:40→22:44)
[2022-03-06] MEDS ORDERED: SENNOSIDES 8.6 MG TABLET PO PRN (17:30)
--- NOTE | 2022-03-06 17:43 | NUR ---
POTASSIUM CHLORIDE BAG 2 OF 8 INFUSING.
[2022-03-06] MEDS ORDERED: Z GUARD REMEDY 4 OZ OINT TP PRN (18:00)
[2022-03-06] MEDS ORDERED: MAGNESIUM HYDROXIDE 30 ML UDC PO PRN (18:00)
[2022-03-06] MEDS ORDERED: oxyCODONE IR immediate release 5 MG PO PRN (18:00)
[2022-03-06] MEDS ORDERED: ACETAMINOPHEN 325 MG TABLET PO PRN (18:00)
[2022-03-06] MEDS ORDERED: ONDANSETRON HCL/PF 4 MG/2 ML VIAL IVP PRN (18:00)
[2022-03-06] MEDS ORDERED: MAG HYDROX/AL HYDROX/SIMETH 30 ML UDC PO PRN (18:00)
[2022-03-06] MEDS ORDERED: POTASSIUM CHLORIDE 20 MEQ TAB.PRT.SR PO ONE (18:00)
--- NOTE | 2022-03-06 18:42 | NUR ---
POTASSIUM BAG 3 OF 8 INFUSING.
--- NOTE | 2022-03-06 19:31 | NUR ---
REPORT GIVEN TO ANGELINA RAMOS FOR KATY.
--- NOTE | 2022-03-06 20:37 | NUR ---
REPORT GIVEN TO GARETH Maier RN FOR KATY
--- NOTE | 2022-03-06 21:30 | NUR ---
RN RECEIVING NOTE FROM ER PATIENT RECEIVED FROM ER VIA TERI NAJERA. PATIENT WAS ABLE TO AMBULATE TO HER BED. A/OX4. NO S/S OF DISTRESS, BREATHING W/O DIFFICULTY ON 3L NC. L-HAND #20 INTACT AND PATENT RUNNING W/ 50ML BAG OF POTASSIUM. TELE READS AFIB 72.SAFETY MEASURES IN PLACE: BED LOCKED AND AT LOWEST POSITION, RAILS UP X2, CALL [employer]APT[employer] WITHIN REACH. PATIENT WAS ORIENTED TO THE UNIT. PATIENT GIVEN CALL [employer]APTISTE AND INSTRUCTED ON ITS USE. BELONGINGS ACCOUNTED FOR, LOGGED INTO SHEET, AND PLACED IN CHART. TELE MONITOR APPLIED TO PATIENT. VS WNL. WILL CONTINUE TO MONITOR.
--- NOTE | 2022-03-06 21:45 | NUR ---
PT TRANSFERRED TO 3W 329 VIA ACLS PROTOCOL. VSS. ALL BELONGINGS WITH PT. ENDORSED CARE AND GAVE POTASSIUM 3 BAGS TO GARETH AtkinsonW RN TO COMPLETE ADMINISTRATION.
[2022-03-06 23:45] VITALS: BP 112/53
[2022-03-07] VITALS: BP 119/64
[2022-03-07] MEDS: POTASSIUM CL. PREMIX PERIPHER. 50 ML IV SCH ×2 (00:27→03:41)
[2022-03-07] MEDS: MORPHINE SULFATE INJ 2 MG/ML DISP.SYRIN IV PRN ×2 (00:34→09:36)
[2022-03-07 04:00] VITALS: BP 124/60
--- NOTE | 2022-03-07 07:03 | NUR ---
RN CLOSING NOTE PATIENT ASLEEP IN BED. A/OX4. NO S/S OF DISTRESS, BREATHING WITHOUT DIFFICULTY ON 3L NC. L-HAND #20 SL INTACT AND PATENT. TELE READS SR 80. SAFETY MEASURES IN PLACE: BED LOCKED AND AT LOWEST POSITION, RAILS UP X2, CALL [employer] WITHIN REACH. WILL ENDORSE TO NEXT SHIFT FOR KATY.
[2022-03-07] MEDS ORDERED: LEVOTHYROXINE SODIUM 50 MCG TABLET PO SCH (07:30)
--- NOTE | 2022-03-07 07:30 | NUR ---
RN Accepting Note Patient AOx4 able to express her own concerns. Patient states she is feeling a lot better now and is interesting in discharging to be able to follow up on her chemotherapy session. Will discuss with physician. Patient with no signs of distress or discomfort, all safety precautions taken, call light and table within reach and bed at lowest position. Will monitor and provide care as needed.
[2022-03-07 07:31] LABS: BASOPHILS % (AUTO) 0.2 % (0.0-2.0); EOSINOPHILS % (AUTO) 0.1 % (0.0-6.0); HEMATOCRIT 32 % (33-45); HEMOGLOBIN 10.6 g/dL (11.5-14.8); LYMPHOCYTES # (AUTO) 0.5 K/uL (0.8-4.8); LYMPHOCYTES % (AUTO) 8.6 % (20.0-44.0); MEAN CORPUSCULAR HGB CONC 33 g/dl (31.0-36.0); MEAN CORPUSCULAR VOLUME 94 fL (82-100); MONOCYTES # (AUTO) 0.2 K/uL (0.1-1.30); MONOCYTES % (AUTO) 4.2 % (2.0-12.0); NEUTROPHILS # (AUTO) 4.8 K/uL (1.8-8.9); NEUTROPHILS % (AUTO) 86.9 % (43.0-81.0); PLATELET COUNT (AUTO) 125 K/uL (150-450); WHITE BLOOD COUNT (AUTO) 5.6 K/uL (4.3-11.0)
[2022-03-07 07:49] LABS: CALCIUM, SERUM 7.3 mg/dL (8.5-10.1); CREATININE 0.5 mg/dL (0.6-1.3); MAGNESIUM 2.3 mg/dL (1.8-2.4); PHOSPHORUS 2.7 mg/dL (2.5-4.9); POTASSIUM 3.4 mmol/L (3.5-5.1)
[2022-03-07 08:00] VITALS: BP 119/72
[2022-03-07] MEDS ORDERED: POTASSIUM CHLORIDE 10 MEQ TABLET.SA PO SCH (09:00)
[2022-03-07] MEDS ORDERED: CALCIUM CARBONATE (1250) 500 MG TABLET PO SCH (09:00)
[2022-03-07] MEDS ORDERED: FOLIC ACID 1 MG TABLET PO SCH (09:00)
[2022-03-07] MEDS ORDERED: POTASSIUM CL. PREMIX PERIPHER. 50 ML IV SCH (09:00)
--- NOTE | 2022-03-07 11:10 | NUR ---
RN D/C note Patient AOx4, per patient able to d/c and follow up as an out patient with her physicians. Provided documents, family friend at bedside will provide transportation. All safety precautions taken.
[2022-03-08] MEDS ORDERED: MAGNESIUM OXIDE 400 MG TABLET PO SCH (09:00)
== END 2022-03-07 10:00 | disposition home or self-care (01) | DRG 641 ==
LOC: ER 14:09 → TRANSITION 17:22 → TELE 19:46
PROVIDERS: ADMIT Internal Medicine; ATTEND Internal Medicine
DX: E87.6 Hypokalemia (principal); E44.0 Moderate protein-calorie malnutrition; C78.7 Secondary malignant neoplasm of liver and intrahepatic bile duct; C79.51 Secondary malignant neoplasm of bone; C34.90 Malignant neoplasm of unspecified part of unspecified bronchus or lung; C79.31 Secondary malignant neoplasm of brain; J91.0 Malignant pleural effusion; Z20.822 Contact with and (suspected) exposure to COVID-19; G35 Multiple sclerosis; M06.9 Rheumatoid arthritis, unspecified; Z90.710 Acquired absence of both cervix and uterus; Z90.49 Acquired absence of other specified parts of digestive tract; Z88.0 Allergy status to penicillin; Z79.899 Other long term (current) drug therapy; E03.9 Hypothyroidism, unspecified; R74.01 Elevation of levels of liver transaminase levels; E88.09 Other disorders of plasma-protein metabolism, not elsewhere classified; Z82.49 Family history of ischemic heart disease and other diseases of the circulatory system; Z85.118 Personal history of other malignant neoplasm of bronchus and lung; Z87.891 Personal history of nicotine dependence; Z92.21 Personal history of antineoplastic chemotherapy
CPT/HCPCS: 36415; 71045-TC; 80048-TC; 80076-TC; 83735-TC; 83880; 84100-TC; 84484-TC; 85025-TC; 85378-TC; 87081-TC; G0378; J2270; J3480; J7030

== ENCOUNTER 2022-03-14 10:32 | Outpatient (CLI) | payer MEDICARE, OTHER ==
[~2022-03-14 10:32] MED LIST changes: -ASPI-1420 PO; -CHOL100043 PO; -CYAN-51 PO; -CYCL15CA23 PO; -FERR325T28 PO; +FOLI0.4T6 PO; +IV CHEMO IV; +LEVO50TA8 PO; -OMEG1CAP PO; +OXYC10TA49 PO; -OXYC1TAB8 PO; +POTASSIUM CHLORIDE 20 MEQ TAB.PRT.SR PO ONE; +POTASSIUM CL. PREMIX PERIPHER. 200 ML ONE; +POTASSIUM CL. PREMIX PERIPHER. 50 ML ONE; +SENN-261 PO; -ZINC50TA69 PO
== END 2022-03-14 23:59 | disposition home or self-care (01) ==
LOC: MSC 10:32
PROVIDERS: ATTEND Anesthesiology
DX: G89.3 Neoplasm related pain (acute) (chronic) (principal); C34.90 Malignant neoplasm of unspecified part of unspecified bronchus or lung; C79.9 Secondary malignant neoplasm of unspecified site; C79.51 Secondary malignant neoplasm of bone; M89.8X9 Other specified disorders of bone, unspecified site; M54.50 Low back pain, unspecified; F11.20 Opioid dependence, uncomplicated
CPT/HCPCS: J3480

== ENCOUNTER 2022-03-22 10:49 | Inpatient (IN) | payer MEDICARE, OTHER ==
[~2022-03-22] VITALS: Ht 165.1 cm; Wt 64.0 kg
[~2022-03-22 10:49] MED LIST changes: -POTASSIUM CHLORIDE 20 MEQ TAB.PRT.SR PO ONE; -POTASSIUM CL. PREMIX PERIPHER. 200 ML ONE; -POTASSIUM CL. PREMIX PERIPHER. 50 ML ONE
--- NOTE | 2022-03-22 11:15 | NUR ---
pt to er bed 05, sent by oncologist for critical low k+ level. pt is c/o weakness, aaox4, vss. awaiting md easton.
--- NOTE | 2022-03-22 11:26 | NUR ---
dr hernandez at bedside for eval.
--- NOTE | 2022-03-22 11:40 | NUR ---
labor and delivery registered nurse at bedside for blood draw.
[2022-03-22 11:55] LABS: BASOPHILS # (AUTO) 0.1 K/uL (0.0-0.2); BASOPHILS % (AUTO) 0.3 % (0.0-2.0); HEMATOCRIT 33 % (33-45); HEMOGLOBIN 10.9 g/dL (11.5-14.8); LYMPHOCYTES # (AUTO) 1.8 K/uL (0.8-4.8); LYMPHOCYTES % (AUTO) 5.5 % (20.0-44.0); MEAN CORPUSCULAR HGB CONC 33 g/dl (31.0-36.0); MEAN CORPUSCULAR VOLUME 92 fL (82-100); MONOCYTES # (AUTO) 1.3 K/uL (0.1-1.30); NEUTROPHILS # (AUTO) 28.8 K/uL (1.8-8.9); NEUTROPHILS % (AUTO) 90.2 % (43.0-81.0); PLATELET COUNT (AUTO) 79 K/uL (150-450); RED BLOOD CELL COUNT(AUTO) 3.54 MIL/uL (4.0-5.2)
[2022-03-22 12:11] LABS: CALCIUM, SERUM 7.3 mg/dL (8.5-10.1); CREATININE 0.7 mg/dL (0.6-1.3)
[2022-03-22] MEDS ORDERED: POTASSIUM CHLORIDE 20 MEQ TAB.PRT.SR PO ONE ×2 (13:00→13:35)
--- NOTE | 2022-03-22 13:00 | NUR ---
MOVE SHEET SUBMITTED.
[2022-03-22] MEDS ORDERED: POTASSIUM CL. PREMIX PERIPHER. 200 ML ONE (13:36)
[2022-03-22] MEDS: POTASSIUM CL. PREMIX PERIPHER. 50 ML IV SCH ×5 (13:58→22:42)
--- NOTE | 2022-03-22 15:05 | NUR ---
k+ bag 2 of 4 infusing
--- NOTE | 2022-03-22 16:10 | NUR ---
k+ bag 3 of 4 infusing.
--- NOTE | 2022-03-22 16:29 | NUR ---
BED 307-2
--- NOTE | 2022-03-22 16:46 | NUR ---
report given to izabela yo. patient awaiting transfer to floor.
[2022-03-22 17:00] VITALS: BP 143/73
[2022-03-22] MEDS ORDERED: ONDANSETRON HCL/PF 4 MG/2 ML VIAL IVP PRN (18:00)
[2022-03-22] MEDS ORDERED: ZOLPIDEM TARTRATE 5 MG TABLET PO PRN (18:00)
[2022-03-22] MEDS ORDERED: Z GUARD REMEDY 4 OZ OINT TP PRN (18:00)
[2022-03-22] MEDS ORDERED: ENOXAPARIN SODIUM 40 MG/0.4 ML DISP.SYRIN SQ SCH ×2 (18:00)
[2022-03-22] MEDS ORDERED: Potassium Chloride 20 MEQ in IV D5/0.45 NACL 1,000 ML IV SCH (18:00)
[2022-03-22] MEDS ORDERED: MAGNESIUM HYDROXIDE 30 ML UDC PO PRN (18:00)
[2022-03-22] MEDS ORDERED: ACETAMINOPHEN 325 MG TABLET PO PRN (18:00)
--- NOTE | 2022-03-22 18:30 | NUR ---
RN ADMITTING NOTE ADMITTED THIS 66 Y/O FEMALE PATIENT FROM ER, TRANSPORTED VIA GURNEY, ARRIVED @1750 IN THE UNIT. WITH ADMITTING DIAGNOSIS OF SEVERE HYPOKALEMIA. PATIENT IS AWAKE, A/O X4, VERBALLY RESPONSIVE, PLEASANT AND COOPERATIVE. NOTED WITH PERIPHERAL LINE ON LEFT HAND #20G, INTACT AND PATENT WITH POTASSIUM CHLORIDE INFUSING WELL. BODY ASSESSMENT DONE, NOTED WITH RIGHT FOOT AND LEFT FOOT CALLUS, SCATTERED SCABS ON RIGHT LEG, LEFT LEG AND BACK, PHOTOS TAKEN, PLACED IN CHART. PLACED PATIENT ON MACHINE PACK ASSEMBLER, CURRENTLY SHOWING SINUS RHYTHM. DENIES ANY PAIN AT THIS TIME. ROUTINE ADMISSION CARE RENDERED. VITAL SIGNS TAKEN. SAFETY MEASURE IN PLACE. BED IN LOWEST AND LOCKED POSITION, SIDE RAILS UP X2, CALL LIGHT PLACED WITHIN EASY REACH. WILL ENDORSE TO NEXT SHIFT FOR CONTINUITY OF CARE.
--- NOTE | 2022-03-22 19:30 | NUR ---
cece rn opening received patient in bed a/ox4. with facial grimacing c/o 10/10 pain on her left lateral sides-- will medicate. no s/s of apparent distress on room air. reading sr on the tele monitor with 80 bpm. no fluids running at this time. patient able to make needs known. call light within reach. will cont. with the plan of care for patient.
[2022-03-22] MEDS: oxyCODONE IR immediate release 5 MG PO PRN (19:38)
--- NOTE | 2022-03-22 19:41 | NUR ---
noc rn note patient c/o 10/10 pain on her left side/lateral. given Oxy ir 10 as ordered PRN. will re-assess.
[2022-03-22 20:00] VITALS: BP 128/60
[2022-03-22] MEDS: Potassium Chloride 20 MEQ in IV D5/0.45 NACL 1,000 ML IV SCH (20:05)
--- NOTE | 2022-03-22 20:19 | NUR ---
noc rn note lab calling for patient new potassium level of 2.5. messaged orthodontic lab technician Doctor, Lizette Alexander. per orthodontic lab technician Pharmacy to put in order.
--- NOTE | 2022-03-22 21:00 | NUR ---
noc rn note new order for 4 bags of potassium. order carried out. 1st bag infusing.
[2022-03-23] VITALS: BP 132/72
[2022-03-23] MEDS: POTASSIUM CL. PREMIX PERIPHER. 50 ML IV SCH ×2 (00:19→02:19)
[2022-03-23] MEDS: Potassium Chloride 20 MEQ in IV D5/0.45 NACL 1,000 ML IV SCH ×3 (02:00→18:00)
[2022-03-23] MEDS: SENNOSIDES 8.6 MG TABLET PO PRN (02:17)
[2022-03-23] MEDS: oxyCODONE IR immediate release 5 MG PO PRN ×3 (02:17→19:24)
--- NOTE | 2022-03-23 02:17 | NUR ---
noc rn note patient c/o 8/10 generalized pain given Oxy IR as ordered PRN. Also c/o constipation, reporting last bm last week ago given Senokot PRN as ordered.
[2022-03-23 04:00] VITALS: BP 123/77
[2022-03-23 04:56] LABS: BAND % (MANUAL) 2 % (0.0-5.0); LYMPHOCYTES % (MANUAL) 5 % (16-48); MONOCYTES % (MANUAL) 21 % (0-11.0); NEUTROPHILS % (MANUAL) 72 (42-76)
[2022-03-23 05:53] LABS: BASOPHILS # (AUTO) 0.1 K/uL (0.0-0.2); BASOPHILS % (AUTO) 0.2 % (0.0-2.0); HEMATOCRIT 30 % (33-45); HEMOGLOBIN 10.1 g/dL (11.5-14.8); LYMPHOCYTES # (AUTO) 1.5 K/uL (0.8-4.8); LYMPHOCYTES % (AUTO) 6.3 % (20.0-44.0); MEAN CORPUSCULAR HGB CONC 34 g/dl (31.0-36.0); MEAN CORPUSCULAR VOLUME 94 fL (82-100); MONOCYTES # (AUTO) 1.2 K/uL (0.1-1.30); NEUTROPHILS # (AUTO) 21.7 K/uL (1.8-8.9); NEUTROPHILS % (AUTO) 88.5 % (43.0-81.0); PLATELET COUNT (AUTO) 76 K/uL (150-450); RED BLOOD CELL COUNT(AUTO) 3.23 MIL/uL (4.0-5.2); WHITE BLOOD COUNT (AUTO) 24.5 K/uL (4.3-11.0)
[2022-03-23 06:16] LABS: CALCIUM, SERUM 6.6 mg/dL (8.5-10.1); CREATININE 0.5 mg/dL (0.6-1.3); MAGNESIUM 2.2 mg/dL (1.8-2.4); PHOSPHORUS 1.1 mg/dL (2.5-4.9)
--- NOTE | 2022-03-23 06:41 | NUR ---
noc rn note Potassium Chloride 20mEQ in D5 1/2 ns non-admin because a whole bag is still running d/t the administration of 4 potassium bags. patient was in a lot of pain even with the K+ running with ns and ice packs hence had to lower down the rate hence extended time of administration.
[2022-03-23 06:56] LABS: POTASSIUM 2.7 mmol/L (3.5-5.1)
--- NOTE | 2022-03-23 07:00 | NUR ---
LIGHTING TECHNICIAN OPENING NOTES RECEIVED PT IN BED AWAKE, ALERT AND ORIENTED X 4 AND ABLE TO MAKE NEEDS KNOWN. NO SOB OR CARDIAC DISTRESS NOTED, ON ROOM AIR AND TOLERATING WELL. ON Z OS MAINFRAME SYSTEMS PROGRAMMER WITH CURRENT READING OF SINUS RHYTHM @77 BPM. WITH IV ACCESS ON LEFT WRIST GAUGE 20, RIGHT FOREARM GAUGE 20 RUNNING WITH KCL 20 MEQS IN D5 1/2 NS @125ML/ML PATENT AND INTACT. ON PAIN MANAGEMENT ORDERED. SAFETY MEASURES MAINTAINED: BED LOCKED AND IN LOWEST POSITION, SIDE RAILS UP X2. CALL LIGHT IN EASY REACH. WILL MONITOR ACCORDINGLY.
--- NOTE | 2022-03-23 07:21 | NUR ---
noc rn closing note patient in bed, a/ox4. no s/s of apparent distress on room air. pain managed with medications. IV Potassium Cloride in D5 1/2 ns running @125mls/hr at this time on the rt. ac #20g. reading sr in the tele monitor with 77 bpm. all needs attended. all scheduled medications administered. safety kept in place the whole shift. will endorse to morning shift rn for continuity of patient care.
[2022-03-23] MEDS: PANTOPRAZOLE 40 MG TABLET.DR PO SCH (07:31)
[2022-03-23] MEDS: LEVOTHYROXINE SODIUM 50 MCG TABLET PO SCH (07:31)
[2022-03-23 08:00] VITALS: BP 139/78
[2022-03-23] MEDS: CALCIUM CARBONATE (1250) 500 MG TABLET PO SCH (08:43)
[2022-03-23] MEDS: MULTIPLE VIT (LYCOPENE/FA/MV,CA,IRON,MIN/LUT)1 TAB PO SCH (08:43)
[2022-03-23] MEDS: FOLIC ACID 1 MG TABLET PO SCH (08:43)
[2022-03-23] MEDS: MAGNESIUM OXIDE 400 MG TABLET PO SCH (08:43)
--- NOTE | 2022-03-23 09:00 | NUR ---
RN NOTES: PATIENT STILL CONSTIPATED, INFORMED DR BRANDON ORDERED DULCOLAX 10MG PRN FOR CONSTIPATION. POTASSIUM IS 2.7 AND MD ORDERED K DURULE 80MEQS PO. ORDERS NOTED AND CARRIED OUT.
--- NOTE | 2022-03-23 09:50 | NUR ---
WOUND CARE CONSULT: PT PRESENTS WITH SOME DRY SCABS TO UPPER BACK, RT RING FINGER WOUND AND BILATERAL FOOT CALLUSES (LEFT FOOT PAINFUL CALLUS WITH SOME ERYTHEMA), ALL PRESENT ON ADMISSION. DR CHAUDHARI AND DR CONTRERAS NOTIFIED OF SURGICAL AND DPM CONSULTS. DISCUSSED WITH NURSING STAFF. MD IN AGREEMENT WITH PLAN OF CARE.
[2022-03-23] MEDS: BISACODYL SUPP (10 MG) 10 MG/SUPP.RECT SUPP.RECT RC PRN (09:53)
[2022-03-23] MEDS ORDERED: POTASSIUM CHLORIDE 20 MEQ TAB.PRT.SR PO ONE (10:00)
--- NOTE | 2022-03-23 10:00 | NUR ---
RN NOTES: PATIENT REFUSED DVT PUMP.
[2022-03-23 12:00] VITALS: BP 137/68
[2022-03-23 13:39] LABS: ALBUMIN 2.8 g/dL (3.4-5.0); CALCIUM, SERUM 6.6 mg/dL (8.5-10.1)
[2022-03-23 16:00] VITALS: BP 149/74
--- NOTE | 2022-03-23 19:24 | NUR ---
RAPID OUTSOLE STITCHER CLOSING NOTES PT IN BED AWAKE, ALERT AND ORIENTED X 4 AND ABLE TO MAKE NEEDS KNOWN. NO SOB OR CARDIAC DISTRESS NOTED, ON ROOM AIR AND TOLERATING WELL. ON SAP PI DEVELOPER WITH CURRENT READING OF SINUS RHYTHM @BPM. WITH IV ACCESS ON LEFT WRIST GAUGE 20, RIGHT FOREARM GAUGE 20 RUNNING WITH KCL 20 MEQS IN D5 1/2 NS @125ML/ML PATENT AND INTACT. ON PAIN MANAGEMENT ORDERED. WOUND CARE TREATMENT DONE, SEEN AND EXAMINED BY DR BENITEZ AND REMOVED/TRIMMED THE KACIE SOLE CALLUSES. SAFETY MEASURES MAINTAINED: BED LOCKED AND IN LOWEST POSITION, SIDE RAILS UP X2. CALL LIGHT IN EASY REACH. WILL MONITOR ACCORDINGLY. ENDORSED TO HOLTER TECHNICIAN RN FOR KATY.
--- NOTE | 2022-03-23 19:30 | NUR ---
INSIDE UPHOLSTERER OPENING NOTES RECEIVED PATIENT IN BED AWAKE, PATIENT IS ALERT AND ORIENTED X 4 , SLOVENIAN SPEAKER AND ABLE TO MAKE NEEDS KNOWN. NO SOB OR CARDIAC DISTRESS NOTED, ON ROOM AIR AND TOLERATING WELL. ON TELE MONITOR READING SINUS RHYTHM 70. IV ACCESS ON LEFT WRIST GAUGE 20, AND RIGHT FOREARM GAUGE 20 PATENT AND INTACT. LEFT WRIST RUNNING KCL AT 20 MEQ IN D5 1/2 NS AT 125 ML/HR. PATIENT COMPLAINS OF SEVERE GENERALIZED PAIN. OXYCODONE 10 MG GIVEN PRN ORDERED AT 1924. ALL SAFETY MEASURES MAINTAINED: BED LOCKED AND IN LOWEST POSITION, SIDE RAILS UP X2. CALL LIGHT IN EASY REACH. WILL CONTINUE TO MONITOR CLOSELY.
[2022-03-23 20:00] VITALS: BP 137/85
[2022-03-23 21:55] LABS: BAND % (MANUAL) 7 % (0.0-5.0); LYMPHOCYTES % (MANUAL) 10 % (16-48); MONOCYTES % (MANUAL) 8 % (0-11.0); NEUTROPHILS % (MANUAL) 75 (42-76)
[2022-03-24] VITALS: BP 139/87
[2022-03-24] MEDS: Potassium Chloride 20 MEQ in IV D5/0.45 NACL 1,000 ML IV SCH ×3 (02:52→18:32)
[2022-03-24] MEDS: MAG HYDROX/AL HYDROX/SIMETH 30 ML UDC PO PRN (03:51)
[2022-03-24 05:00] VITALS: BP 137/80
[2022-03-24] MEDS: oxyCODONE IR immediate release 5 MG PO PRN ×3 (05:34→18:56)
--- NOTE | 2022-03-24 06:31 | NUR ---
TREASURY REPRESENTATIVE CLOSING NOTES PATIENT IN BED AWAKE, PATIENT IS ALERT AND ORIENTED X 4 , SINHALA SPEAKER AND ABLE TO MAKE NEEDS KNOWN. NO SOB OR CARDIAC DISTRESS NOTED, ON O2 VIA NASAL CANNULA AT 2L/MIN TOLERATING WELL. ON TELE MONITOR READING SINUS RHYTHM 73. IV ACCESS ON LEFT FA GAUGE 20 PATENT AND INTACT RUNNING KCL AT 20 MEQ IN D5 1/2 NS AT 125 ML/HR. PATIENT COMPLAINS OF SEVERE GENERALIZED PAIN. OXYCODONE 10 MG GIVEN PRN ORDERED AT 0534. ALL SAFETY MEASURES MAINTAINED: BED LOCKED AND IN LOWEST POSITION, SIDE RAILS UP X2. CALL LIGHT IN EASY REACH. ALL DUE MEDS GIVEN ORDERED. WILL ENDORSE FOR KATY..
[2022-03-24 06:45] LABS: CALCIUM, SERUM 6.9 mg/dL (8.5-10.1); CREATININE 0.5 mg/dL (0.6-1.3); MAGNESIUM 2.2 mg/dL (1.8-2.4); PHOSPHORUS 1.1 mg/dL (2.5-4.9)
[2022-03-24 07:21] LABS: POTASSIUM 2.1 mmol/L (3.5-5.1)
--- NOTE | 2022-03-24 07:35 | NUR ---
MANAGER PHOTO OPENING NOTES RECEIVED PATIENT IN BED AWAKE, PATIENT IS ALERT AND ORIENTED X 4 , WELSH SPEAKER AND ABLE TO MAKE NEEDS KNOWN. NO SOB OR CARDIAC DISTRESS NOTED, ON OXYGEN AT 2LPM VIA NC TOLERATING WELL. ON TELE MONITOR READING SINUS RHYTHM 73. IV ACCESS ON LEFT WRIST GAUGE 20, PATENT AND INTACT. LEFT WRIST RUNNING KCL AT 20 MEQ IN D5 1/2 NS AT 125 ML/HR. NO C/O PAIN AND DISCOMFORT AT THIS TIME. ALL SAFETY MEASURES MAINTAINED: BED LOCKED AND IN LOWEST POSITION, SIDE RAILS UP X2. CALL LIGHT IN EASY REACH. WILL CONTINUE TO MONITOR CLOSELY.
[2022-03-24 07:40] LABS: HEMATOCRIT 31 % (33-45); HEMOGLOBIN 10.2 g/dL (11.5-14.8); MEAN CORPUSCULAR HGB CONC 33 g/dl (31.0-36.0); MEAN CORPUSCULAR VOLUME 93 fL (82-100); PLATELET COUNT (AUTO) 88 K/uL (150-450); RED BLOOD CELL COUNT(AUTO) 3.29 MIL/uL (4.0-5.2)
[2022-03-24 08:00] VITALS: BP 134/76
[2022-03-24] MEDS: LEVOTHYROXINE SODIUM 50 MCG TABLET PO SCH (08:13)
[2022-03-24] MEDS: PANTOPRAZOLE 40 MG TABLET.DR PO SCH (08:13)
[2022-03-24] MEDS: MAGNESIUM OXIDE 400 MG TABLET PO SCH (09:01)
[2022-03-24] MEDS: FOLIC ACID 1 MG TABLET PO SCH (09:01)
[2022-03-24] MEDS: CALCIUM CARBONATE (1250) 500 MG TABLET PO SCH (09:01)
[2022-03-24] MEDS: MULTIPLE VIT (LYCOPENE/FA/MV,CA,IRON,MIN/LUT)1 TAB PO SCH (09:09)
[2022-03-24] MEDS ORDERED: POTASSIUM CHLORIDE 10 MEQ/50 ML PREMIXED IVPB FOR PERIPHERAL LINE IV ONE (15:00)
[2022-03-24] MEDS: POTASSIUM CL. PREMIX PERIPHER. 50 ML IV SCH ×8 (15:25→22:11)
[2022-03-24] MEDS ORDERED: Calcium Gluconate 0.465 MEQ/ML VIAL IV ONE (15:30)
[2022-03-24 16:00] VITALS: BP 119/67
[2022-03-24] MEDS ORDERED: CALCIUM GLUCONATE 500 MG TABLET PO ONE (17:00)
[2022-03-24 19:18] LABS: BAND % (MANUAL) 5 % (0.0-5.0); NEUTROPHILS % (MANUAL) 82 (42-76)
[2022-03-24 19:19] LABS: BASOPHILS % (MANUAL) 0 % (0.0-2.0); EOSINOPHILS % (MANUAL) 2 % (0-4); LYMPHOCYTES % (MANUAL) 7 % (16-48); MONOCYTES % (MANUAL) 4 % (0-11.0)
--- NOTE | 2022-03-24 19:27 | NUR ---
LEAD LEVEL DESIGNER OPENING NOTES RECEIVED PATIENT IN BED AAOX 4 ,ABLE TO MAKE NEEDS KNOWN.ON 2L O2 VIA CN SAMANTHA WELL,SATTING 97.8% NO SIGN SOB/DISTRESS NOTED,IV ACCESS ON LEFT WRIST GAUGE 20, PATENT AND INTACT.NO C/O PAIN AND DISCOMFORT AT THIS TIME. ALL SAFETY MEASURES MAINTAINED: BED LOCKED AND IN LOWEST POSITION, SIDE RAILS UP X2. CALL LIGHT IN EASY REACH. WILL CONTINUE TO MONITOR.
[2022-03-24] MEDS ORDERED: PANTOPRAZOLE 40 MG VIAL IV ONE (19:30)
--- NOTE | 2022-03-24 19:46 | NUR ---
VIAL GAUGER CLOSING NOTES PATIENT IN BED AWAKE, ALERT AND ORIENTED X 4 , SPANISH SPEAKER AND ABLE TO MAKE NEEDS KNOWN. NO SOB OR CARDIAC DISTRESS NOTED, ON OXYGEN AT 2LPM VIA NC TOLERATING WELL. ON TELE MONITOR READING SINUS RHYTHM 85. IV ACCESS ON LEFT WRIST GAUGE 20, PATENT AND INTACT. LEFT WRIST RUNNING KCL AT 20 MEQ IN D5 1/2 NS AT 125 ML/HR. NO C/O PAIN AND DISCOMFORT AT THIS TIME. ALL NEEDS MET, KEPT COMFORTABLE. ALL SAFETY MEASURES MAINTAINED: BED LOCKED AND IN LOWEST POSITION, SIDE RAILS UP X2. CALL LIGHT IN EASY REACH. WILL ENDORSE TO NEXT SHIFT ANY KATY.
[2022-03-24 20:00] VITALS: BP 132/58
[2022-03-24] MEDS ORDERED: CALCIUM CARBONATE (1250) 500 MG TABLET PO ONE (20:00)
[2022-03-25] VITALS: BP 132/66
[2022-03-25] MEDS: Potassium Chloride 20 MEQ in IV D5/0.45 NACL 1,000 ML IV SCH ×3 (03:05→18:08)
[2022-03-25] MEDS ORDERED: PANTOPRAZOLE 40 MG VIAL IV ONE (03:30)
[2022-03-25 04:00] VITALS: BP 140/65
[2022-03-25 05:51] LABS: BASOPHILS # (AUTO) 0.1 K/uL (0.0-0.2); BASOPHILS % (AUTO) 0.3 % (0.0-2.0); EOSINOPHILS % (AUTO) 0.5 % (0.0-6.0); HEMATOCRIT 29 % (33-45); HEMOGLOBIN 9.6 g/dL (11.5-14.8); LYMPHOCYTES # (AUTO) 1.4 K/uL (0.8-4.8); LYMPHOCYTES % (AUTO) 6.2 % (20.0-44.0); MEAN CORPUSCULAR HGB CONC 33 g/dl (31.0-36.0); MEAN CORPUSCULAR VOLUME 94 fL (82-100); MONOCYTES # (AUTO) 0.4 K/uL (0.1-1.30); MONOCYTES % (AUTO) 2.1 % (2.0-12.0); NEUTROPHILS # (AUTO) 19.9 K/uL (1.8-8.9); NEUTROPHILS % (AUTO) 90.9 % (43.0-81.0); PLATELET COUNT (AUTO) 98 K/uL (150-450); RED BLOOD CELL COUNT(AUTO) 3.09 MIL/uL (4.0-5.2); WHITE BLOOD COUNT (AUTO) 21.8 K/uL (4.3-11.0)
[2022-03-25 06:08] LABS: CALCIUM, SERUM 6.1 mg/dL (8.5-10.1); CREATININE 0.6 mg/dL (0.6-1.3); MAGNESIUM 2.1 mg/dL (1.8-2.4)
--- NOTE | 2022-03-25 06:20 | NUR ---
OUTER DIAMETER TECHNICIAN CLOSING NOTES; PATIENT IN BED AAOX 4 ,ABLE TO MAKE NEEDS KNOWN.ON 2L O2 VIA NC SAMANTHA WELL,SATTING 98% NO SIGN SOB/DISTRESS NOTED,IV ACCESS ON LEFT WRIST GAUGE 20, PATENT AND INTACT.NO C/O PAIN AND DISCOMFORT DURING SHIFT.DUE MEDS GIVEN ORDER,ALL NEEDS ATTENDED, ALL SAFETY MEASURES MAINTAINED: BED LOCKED AND IN LOWEST POSITION, SIDE RAILS UP X2. CALL LIGHT IN EASY REACH. WILL ENDORSED TO NEXT SHIFT.
[2022-03-25 06:22] LABS: POTASSIUM 2.8 mmol/L (3.5-5.1)
--- NOTE | 2022-03-25 06:38 | NUR ---
RN NOTES; TEXTED WEB UI SOFTWARE ENGINEER,NYDIA VELASCO,POTASSIUM LEVEL 2.8 WITH A NEW ORDER 40MEQ X1 IV.
[2022-03-25] MEDS: POTASSIUM CL. PREMIX PERIPHER. 50 ML IV SCH ×8 (06:57→21:50)
[2022-03-25] MEDS: oxyCODONE IR immediate release 5 MG PO PRN ×3 (06:57→23:34)
--- NOTE | 2022-03-25 07:01 | NUR ---
RN NOTES; PT COMPLAINED OF GEN,BODY PAIN 12/03.PRN OXYCODONE 10MG PO WAS GIVEN.NO A/R NOTED.
--- NOTE | 2022-03-25 07:40 | NUR ---
BEHAVIORAL SERVICES TECH OPENING NOTES PATIENT IN BED AWAKE, PATIENT IS ALERT AND ORIENTED X 4, ABLE TO MAKE NEEDS KNOWN. NO SOB OR CARDIAC DISTRESS NOTED, ON OXYGEN AT 2LPM VIA NC TOLERATING WELL. ON TELE MONITOR READING SINUS RHYTHM 84. IV ACCESS ON LEFT WRIST GAUGE 20, PATENT AND INTACT. LEFT WRIST RUNNING KCL AT 20 MEQ IN D5 1/2 NS AT 125 ML/HR. NO C/O PAIN AND DISCOMFORT AT THIS TIME. ALL SAFETY MEASURES MAINTAINED: BED LOCKED AND IN LOWEST POSITION, SIDE RAILS UP X2. CALL LIGHT IN EASY REACH. WILL CONTINUE TO MONITOR CLOSELY.
[2022-03-25 08:00] VITALS: BP 137/98
[2022-03-25] MEDS: MAGNESIUM OXIDE 400 MG TABLET PO SCH (08:27)
[2022-03-25] MEDS: CALCIUM CARBONATE (1250) 500 MG TABLET PO SCH (08:27)
[2022-03-25] MEDS: PANTOPRAZOLE 40 MG TABLET.DR PO SCH (08:27)
[2022-03-25] MEDS: LEVOTHYROXINE SODIUM 50 MCG TABLET PO SCH (08:27)
[2022-03-25] MEDS: FOLIC ACID 1 MG TABLET PO SCH (08:27)
[2022-03-25] MEDS: MULTIPLE VIT (LYCOPENE/FA/MV,CA,IRON,MIN/LUT)1 TAB PO SCH (08:55)
[2022-03-25] MEDS: BISACODYL SUPP (10 MG) 10 MG/SUPP.RECT SUPP.RECT RC PRN (11:19)
[2022-03-25] MEDS ORDERED: Calcium Gluconate 0.465 MEQ/ML VIAL IV ONE (12:30)
[2022-03-25] MEDS ORDERED: Calcium Gluconate 1GM/10ML 4.65 MEQ in IV NS 0.9% 100 ML IV ONE (13:00)
[2022-03-25 14:52] LABS: BAND % (MANUAL) 3 % (0.0-5.0); LYMPHOCYTES % (MANUAL) 10 % (16-48); METAMYELOCYTES % 4 % (0-0); MONOCYTES % (MANUAL) 2 % (0-11.0); MYELOCYTES % 5 % (0-0); NEUTROPHILS % (MANUAL) 76 (42-76)
[2022-03-25 16:00] VITALS: BP 121/69
--- NOTE | 2022-03-25 16:23 | NUR ---
RN NOTE PATIENT C/O OF GENERALIZED PAIN, PRN OXYCODONE ADMINSTERED. WILL MONITOR.
--- NOTE | 2022-03-25 18:14 | NUR ---
QUALITY CONTROL CHEMIST CLOSING NOTES; PATIENT IN BED AOX 4 ,ABLE TO MAKE NEEDS KNOWN. ON 2L O2 VIA NC TOLERATING WELL, OXYGEN SAT AT 98% NO SIGN SOB/DISTRESS NOTED,IV ACCESS ON LEFT WRIST GAUGE 20, PATENT AND INTACT. NO C/O PAIN AND DISCOMFORT DURING THIS TIME. DUE MEDS GIVEN ORDER,ALL NEEDS ATTENDED, ALL SAFETY MEASURES MAINTAINED: BED LOCKED AND IN LOWEST POSITION, SIDE RAILS UP X2. CALL LIGHT IN EASY REACH. WILL ENDORSED TO NEXT SHIFT.
--- NOTE | 2022-03-25 19:30 | NUR ---
noc rn opening received patient in bed, a/ox4. no s/s of apparent distress on 2lpm of o2 via nc. denies pain at this time but c/o fullness in stomach and not having a bm for 12 days. reading sr with pac [address] Lt. fa iv access running Potassium @30mls/hr at this time. call light within reach. safety in place. will continue with plan of care for patient.
[2022-03-25 20:00] VITALS: BP 133/94
[2022-03-25] MEDS ORDERED: NA PHOS,M-B/NA PHOS,DI-BA 1 EA ENEMA RC STA (20:06)
--- NOTE | 2022-03-25 20:30 | NUR ---
noc rn note patient abdomen distended and hard upon palpation. hypoactive upon auscultation. per patient her last bm was 12 days ago. denies N/V. patient did received suppository 8 hrs ago. messaged customer relations coordinator Lizette for advice. Lizette ordered Enema for now for instant relief. order carried out.
--- NOTE | 2022-03-25 20:53 | NUR ---
noc rn note patient states relief after enema given. went x1 with 3 tiny feces but per patient she feels much better now. will continue to monitor.
[2022-03-25] MEDS: MAG HYDROX/AL HYDROX/SIMETH 30 ML UDC PO PRN (22:51)
--- NOTE | 2022-03-25 23:37 | NUR ---
noc rn note patient noted moaning with facial grimacing c/o 9/10 pain on her back. given Oxy IR as ordered PRN for severe pain.
[2022-03-26] VITALS: BP 134/77
[2022-03-26] MEDS: HYDROCODONE/APAP 5/325MG TABLET PO PRN ×2 (03:58→12:04)
--- NOTE | 2022-03-26 03:58 | NUR ---
noc rn note patient noted moaning with facial grimacing. 10/02 c/o pain on her back, given norco 5 as ordered PRN. will re-assess.
[2022-03-26 05:00] VITALS: BP 130/78
[2022-03-26 06:01] LABS: BASOPHILS % (AUTO) 0.2 % (0.0-2.0); HEMATOCRIT 29 % (33-45); HEMOGLOBIN 9.7 g/dL (11.5-14.8); LYMPHOCYTES # (AUTO) 1.2 K/uL (0.8-4.8); LYMPHOCYTES % (AUTO) 5.9 % (20.0-44.0); MEAN CORPUSCULAR HGB CONC 33 g/dl (31.0-36.0); MEAN CORPUSCULAR VOLUME 93 fL (82-100); MONOCYTES % (AUTO) 4.7 % (2.0-12.0); NEUTROPHILS % (AUTO) 89.2 % (43.0-81.0); PLATELET COUNT (AUTO) 121 K/uL (150-450); RED BLOOD CELL COUNT(AUTO) 3.13 MIL/uL (4.0-5.2); WHITE BLOOD COUNT (AUTO) 20.2 K/uL (4.3-11.0)
[2022-03-26 06:12] LABS: ALBUMIN 2.5 g/dL (3.4-5.0); CALCIUM, SERUM 6.1 mg/dL (8.5-10.1)
[2022-03-26 06:20] LABS: CALCIUM, SERUM 6.4 mg/dL (8.5-10.1); CREATININE 0.5 mg/dL (0.6-1.3); MAGNESIUM 2.1 mg/dL (1.8-2.4); PHOSPHORUS 1.3 mg/dL (2.5-4.9)
[2022-03-26 06:26] LABS: POTASSIUM 2.4 mmol/L (3.5-5.1)
[2022-03-26] MEDS: Potassium Chloride 20 MEQ in IV D5/0.45 NACL 1,000 ML IV SCH ×3 (07:04→17:25)
--- NOTE | 2022-03-26 07:04 | NUR ---
noc rn note scheduled 0200 KCL in D51/2 ns hanged late because a whole bag was still running.
--- NOTE | 2022-03-26 07:32 | NUR ---
noc rn note report given to RACHEL Ma for continuity of patient care.
--- NOTE | 2022-03-26 07:34 | NUR ---
ms rn received on bed,awake,alert,oriented x4,patient noted to have a distended abdomen,soft,complaining of bloating, mylanta po given, , will monitor patient.
[2022-03-26 08:00] VITALS: BP 135/74
[2022-03-26] MEDS: LEVOTHYROXINE SODIUM 50 MCG TABLET PO SCH (08:15)
[2022-03-26] MEDS: PANTOPRAZOLE 40 MG TABLET.DR PO SCH (08:15)
[2022-03-26] MEDS: MAG HYDROX/AL HYDROX/SIMETH 30 ML UDC PO PRN (08:15)
--- NOTE | 2022-03-26 08:51 | NUR ---
ms yo breakfast served,due meds given,tolerated well.
[2022-03-26] MEDS: MULTIPLE VIT (LYCOPENE/FA/MV,CA,IRON,MIN/LUT)1 TAB PO SCH (09:39)
[2022-03-26] MEDS: FOLIC ACID 1 MG TABLET PO SCH (09:39)
[2022-03-26] MEDS: MAGNESIUM OXIDE 400 MG TABLET PO SCH (09:39)
[2022-03-26] MEDS: CALCIUM CARBONATE (1250) 500 MG TABLET PO SCH (09:39)
[2022-03-26 12:00] VITALS: BP 135/70
[2022-03-26] MEDS: POTASSIUM PHOSPHATE MM 7.5 MMOL in IV NS 0.9% 100 ML IV SCH ×4 (12:01→22:00)
[2022-03-26] MEDS: oxyCODONE IR immediate release 5 MG PO PRN ×2 (12:09→18:19)
--- NOTE | 2022-03-26 14:30 | NUR ---
ms rn was seen by rocio hurst, waiting for orders.
[2022-03-26 16:00] VITALS: BP 118/80
[2022-03-26] MEDS ORDERED: Calcium Gluconate 0.465 MEQ/ML VIAL IV ONE (17:00)
[2022-03-26] MEDS ORDERED: Calcium Gluconate 1GM/10ML 4.65 MEQ in IV NS 0.9% 100 ML IV ONE (18:00)
--- NOTE | 2022-03-26 19:00 | NUR ---
ms rn on bed, no distress noted,all needs attended.
--- NOTE | 2022-03-26 19:40 | NUR ---
RN OPENING NOTE RECEIVED PATIENT IN BED; AWAKE, ALERT AND ORIENTED X 4. ON O2 INHALATION @ 1 LPM VIA NASAL CANNULA; TOLERATING WELL. NOT IN ANY FORM OF RESPIRATORY OR CARDIAC DISTRESS. DENIES ANY PAIN OR DISCOMFORT AT THIS TIME. ON TELE MONITORING SINUS RHYTHM HR-71 BPM. WITH IV ACCESS ON LEFT FOREARM 20G; PATENT AND INTACT INFUSING WITH KCL 20 MEQ IN D5 1/2 NS 1L RUNNING AT 125 ML/HR; FLUSHES WELL. ABLE TO MAKE NEEDS KNOWN. SAFETY MEASURES IMPLEMENTED: HEAD OF BED ELEVATED, CALL LIGHT AND TABLE WITHIN REACH, SIDE RAILS UP X 2, BED IN LOWEST LOCKED POSITION. WILL CONTINUE TO MONITOR
[2022-03-26 20:36] VITALS: BP 123/58
[2022-03-27 00:59] VITALS: BP 140/63
[2022-03-27] MEDS: HYDROCODONE/APAP 5/325MG TABLET PO PRN (01:46)
[2022-03-27] MEDS: Potassium Chloride 20 MEQ in IV D5/0.45 NACL 1,000 ML IV SCH ×3 (01:49→17:04)
[2022-03-27] MEDS: MAG HYDROX/AL HYDROX/SIMETH 30 ML UDC PO PRN (03:36)
--- NOTE | 2022-03-27 04:00 | NUR ---
RN NOTE IV ACCESS DISLODGED. PATIENT REFUSED REINSERTION FOR NOW. EXPLAINED RISKS AND BENEFITS 3X; STILL PATIENT REFUSED REINSERTION. NYDIA VELASCO MADE AWARE. WITH ORDER MADE AND WILL CARRY OUT.
[2022-03-27] MEDS ORDERED: POTASSIUM CHLORIDE 20 MEQ TAB.PRT.SR PO ONE ×2 (05:00→11:30)
--- NOTE | 2022-03-27 06:53 | NUR ---
RN CLOSING NOTE PATIENT IN BED; AWAKE, A/O X 4. ON O2 INHALATION @ 1 LPM VIA NASAL CANNULA; TOLERATING WELL. NOT IN ANY FORM OF RESPIRATORY OR CARDIAC DISTRESS. DENIES ANY PAIN OR DISCOMFORT AT THIS TIME. ON TELE MONITORING SINUS RHYTHM HR-75 BPM. SAFETY MEASURES MAINTAINED: HEAD OF BED ELEVATED, CALL LIGHT AND TABLE WITHIN REACH, SIDE RAILS UP X 2, BED IN LOWEST LOCKED POSITION. ENDORSED TO MORNING SHIFT FOR KATY.
[2022-03-27 07:30] LABS: BASOPHILS % (AUTO) 0.2 % (0.0-2.0); HEMATOCRIT 31 % (33-45); HEMOGLOBIN 10.1 g/dL (11.5-14.8); LYMPHOCYTES % (AUTO) 5.3 % (20.0-44.0); MEAN CORPUSCULAR HGB CONC 33 g/dl (31.0-36.0); MEAN CORPUSCULAR VOLUME 94 fL (82-100); MONOCYTES # (AUTO) 0.6 K/uL (0.1-1.30); MONOCYTES % (AUTO) 3.6 % (2.0-12.0); NEUTROPHILS # (AUTO) 16.4 K/uL (1.8-8.9); NEUTROPHILS % (AUTO) 90.9 % (43.0-81.0); PLATELET COUNT (AUTO) 174 K/uL (150-450); RED BLOOD CELL COUNT(AUTO) 3.26 MIL/uL (4.0-5.2); WHITE BLOOD COUNT (AUTO) 18.1 K/uL (4.3-11.0)
--- NOTE | 2022-03-27 07:59 | NUR ---
AMMUNITION ASSEMBLY I LABORER OPENING NOTES: RECEIVED PATIENT IN BED; AWAKE, A/O X 4. ON O2 INHALATION @ 1 LPM VIA NASAL CANNULA; TOLERATING WELL, NO S/S OF SOB AND ACUTE DISTRESS. DENIES PAIN OR DISCOMFORT AT THIS TIME. TELE MONITORING SINUS RHYTHM HR-76 BPM. NO IV ACCESS AT THIS TIME PENDING MIDLINE INSERTION. SAFETY MEASURES MAINTAINED: HEAD OF BED ELEVATED, CALL LIGHT AND TABLE WITHIN REACH, SIDE RAILS UP X 2, BED IN LOWEST LOCKED POSITION, WILL CONT WITH PLAN OF CARE DURING SHIFT.
[2022-03-27 08:01] LABS: CALCIUM, SERUM 6.3 mg/dL (8.5-10.1); CREATININE 0.4 mg/dL (0.6-1.3); MAGNESIUM 2.4 mg/dL (1.8-2.4); PHOSPHORUS 2.2 mg/dL (2.5-4.9)
[2022-03-27 08:08] LABS: POTASSIUM 2.7 mmol/L (3.5-5.1)
[2022-03-27 08:38] VITALS: BP 128/68
[2022-03-27] MEDS: FOLIC ACID 1 MG TABLET PO SCH (08:46)
[2022-03-27] MEDS: LEVOTHYROXINE SODIUM 50 MCG TABLET PO SCH (08:46)
[2022-03-27] MEDS: CALCIUM CARBONATE (1250) 500 MG TABLET PO SCH (08:46)
[2022-03-27] MEDS: MAGNESIUM OXIDE 400 MG TABLET PO SCH (08:46)
[2022-03-27] MEDS: PANTOPRAZOLE 40 MG TABLET.DR PO SCH (08:46)
[2022-03-27] MEDS: MULTIPLE VIT (LYCOPENE/FA/MV,CA,IRON,MIN/LUT)1 TAB PO SCH (08:54)
[2022-03-27] MEDS: oxyCODONE IR immediate release 5 MG PO PRN ×2 (10:30→20:27)
[2022-03-27] MEDS ORDERED: NEUTRA PHOS 1 POWD.PACKET PO ONE (11:00)
--- NOTE | 2022-03-27 11:49 | NUR ---
RN NOTES; IV K+ non admin due to pt not having IV access, pending midline insertion, K+ PO will be administered, aware
[2022-03-27 13:49] VITALS: BP 139/79
[2022-03-27] MEDS ORDERED: Calcium Gluconate 1GM/10ML 4.65 MEQ in IV NS 0.9% 100 ML IV ONE (14:00)
[2022-03-27 16:30] VITALS: BP 119/52
[2022-03-27] MEDS: ENSURE ENLIVE CHOC 237 ML CAN PO SCH (17:05)
--- NOTE | 2022-03-27 19:28 | NUR ---
STUDENT MINISTRIES DIRECTOR CLOSING NOTES: PATIENT IN BED; AWAKE, A/O X 4. FAMILY AT BEDSIDE. ON O2 INHALATION @ 1 LPM VIA NASAL CANNULA; TOLERATING WELL, NO S/S OF SOB AND ACUTE DISTRESS. DENIES PAIN OR DISCOMFORT AT THIS TIME. TELE MONITOR READS SINUS RHYTHM HR-90 BPM. IV ACCESS AT R UA MIDLINE #18. ALL DUE MEDS GIVEN, KEPT PT CLEAN, DRY AND COMFORTABLE. SAFETY MEASURES MAINTAINED: HEAD OF BED ELEVATED, LOCKED IN LOWEST POSITION, CALL LIGHT AND TABLE WITHIN REACH, SIDE RAILS UP X2. ENDORSED TO PM SHIFT.
--- NOTE | 2022-03-27 19:30 | NUR ---
SALESPERSON SEWING MACHINES OPENING NOTES: RECEIVED PATIENT AWAKE IN BED.PATIENT IS A/O X 4. BROTHER AT THE BED SIDE.ON O2 INHALATION VIA NASAL CANNULA @ 2 L/MIN.TOLERATING WELL, NO SOB NOTED. NO PAIN NOTED. ON TELE MONITOR READING SR WITH HR-70 BPM. RIGHT UPPER ARM MID LINE G# 18 INTACT RUNNING 20 MEQ POTASSIUM CHLORIDE IN D51/2 NS.ALL SAFETY MEASURES IN PLACE . HEAD OF BED ELEVATED, CALL LIGHT AND TABLE WITHIN REACH, SIDE RAILS UP X 2, BED IN LOWEST LOCKED POSITION, WILL CONTINUE TO MONITOR CLOSELY.
[2022-03-27 20:00] VITALS: BP 135/72
[2022-03-28] VITALS: BP 135/78
[2022-03-28] MEDS: Potassium Chloride 20 MEQ in IV D5/0.45 NACL 1,000 ML IV SCH ×4 (01:40→23:18)
[2022-03-28] MEDS: HYDROCODONE/APAP 5/325MG TABLET PO PRN (01:48)
[2022-03-28] MEDS: oxyCODONE IR immediate release 5 MG PO PRN ×3 (03:39→18:24)
[2022-03-28 04:00] VITALS: BP 136/76
--- NOTE | 2022-03-28 06:25 | NUR ---
VINYL TOP INSTALLER CLOSING NOTES: PATIENT AWAKE IN BED.PATIENT IS A/O X 4.ON O2 INHALATION VIA NASAL CANNULA @ 2 L/MIN.TOLERATING WELL, NO SOB NOTED. NO PAIN NOTED AT THIS TIME. ON TELE MONITOR READING SR WITH HR-76 BPM. RIGHT UPPER ARM MID LINE G# 18 INTACT RUNNING 20 MEQ POTASSIUM CHLORIDE IN D51/2 NS. ALL DUE MEDS GIVEN ORDERED.ALL SAFETY MEASURES IN PLACE . HEAD OF BED ELEVATED, CALL LIGHT AND TABLE WITHIN REACH, SIDE RAILS UP X 2, BED IN LOWEST LOCKED POSITION, WILL ENDORSE INCOMING SHIFT FOR KATY.
[2022-03-28 06:35] LABS: BASOPHILS % (AUTO) 0.1 % (0.0-2.0); HEMATOCRIT 29 % (33-45); HEMOGLOBIN 9.5 g/dL (11.5-14.8); LYMPHOCYTES # (AUTO) 0.7 K/uL (0.8-4.8); LYMPHOCYTES % (AUTO) 4.1 % (20.0-44.0); MEAN CORPUSCULAR HGB CONC 33 g/dl (31.0-36.0); MEAN CORPUSCULAR VOLUME 95 fL (82-100); MONOCYTES # (AUTO) 0.7 K/uL (0.1-1.30); NEUTROPHILS # (AUTO) 15.9 K/uL (1.8-8.9); NEUTROPHILS % (AUTO) 91.8 % (43.0-81.0); PLATELET COUNT (AUTO) 196 K/uL (150-450); RED BLOOD CELL COUNT(AUTO) 3.08 MIL/uL (4.0-5.2); WHITE BLOOD COUNT (AUTO) 17.3 K/uL (4.3-11.0)
[2022-03-28 06:50] LABS: CALCIUM, SERUM 7.1 mg/dL (8.5-10.1); CREATININE 0.7 mg/dL (0.6-1.3); MAGNESIUM 2.5 mg/dL (1.8-2.4); PHOSPHORUS 1.1 mg/dL (2.5-4.9); POTASSIUM 3.9 mmol/L (3.5-5.1)
--- NOTE | 2022-03-28 07:30 | NUR ---
PRODUCT MANAGER MEDICAL DEVICE NOTES PT IN BED, AWAKE, ALERT AND ORIENTED, NO COMPLAINT OF PAIN OR ANY DISCOMFORT, RESPIRATIONS NORMAL, CALL LIGHT WITHIN REACH, ASSISTED WITH URINAL USE, PLAN OF CARE DISCUSSED WITH PT, VERBALIZED UNDERSTANDING.
[2022-03-28 08:00] VITALS: BP 147/78
[2022-03-28] MEDS: MULTIPLE VIT (LYCOPENE/FA/MV,CA,IRON,MIN/LUT)1 TAB PO SCH (08:50)
[2022-03-28] MEDS: CALCIUM CARBONATE (1250) 500 MG TABLET PO SCH (08:50)
[2022-03-28] MEDS: PANTOPRAZOLE 40 MG TABLET.DR PO SCH (08:50)
[2022-03-28] MEDS: LEVOTHYROXINE SODIUM 50 MCG TABLET PO SCH (08:50)
[2022-03-28] MEDS: MAGNESIUM OXIDE 400 MG TABLET PO SCH (08:50)
[2022-03-28] MEDS: FOLIC ACID 1 MG TABLET PO SCH (08:50)
[2022-03-28] MEDS: ENSURE ENLIVE CHOC 237 ML CAN PO SCH ×2 (08:50→17:21)
[2022-03-28] MEDS ORDERED: K PHOS NEUTRAL 250 MG TABLET PO ONE (09:00)
[2022-03-28 12:00] VITALS: BP 138/82
[2022-03-28] MEDS ORDERED: SORBITOL SOLUTION 70% 30 ML SOLUTION PO ONE (12:00)
[2022-03-28] MEDS ORDERED: LACTULOSE 10 G/15 ML UDC (PYXIS) PO ONE (12:00)
--- NOTE | 2022-03-28 12:56 | NUR ---
OPENSTACK DEVELOPER NOTES PT SEEN AND EXAMINED BY DR. PAZ, ORDERS GIVEN.
[2022-03-28 16:00] VITALS: BP 154/81
[2022-03-28 16:56] LABS: BILIRUBIN,URINE NEGATIVE (NEGATIVE); COLOR,URINE YELLOW (YELLOW); LEUKOCYTE ESTERASE ,URINE NEGATIVE (NEGATIVE); NITRITE, URINE NEGATIVE (NEGATIVE); PROTEIN,URINE 1+ mg/dl (NEGATIVE); UGLUCOSE 1+ mg/dL (NEGATIVE)
[2022-03-28 17:24] LABS: BACTERIA,URINE 1+ /HPF (None Seen); SQUAMOUS EPITHELIAL CELL,UR Few /HPF (None Seen)
--- NOTE | 2022-03-28 18:30 | NUR ---
RN MS NOTES PT IN BED, AWAKE, ALERT AND ORIENTED, PAIN MEDICATION GIVEN FOR PAIN MANAGEMENT, IV FLUIDS INFUSING WELL, SEEN AND EXAMINED BY DR. PAZ, PT HAD A LARGE BM THIS AFTERNOON, VERBALIZED RELIEF, ASSISTED TO BEDSIDE COMMODE NEEDED, PM MEDS GIVEN, ALL NEEDS ATTENDED.
--- NOTE | 2022-03-28 19:30 | NUR ---
MS RN OPENING NOTES: RECEIVED PATIENT AWAKE IN BED.PATIENT IS A/O X 4.ON O2 INHALATION VIA NASAL CANNULA @ 2 L/MIN.TOLERATING WELL, NO SOB NOTED. NO PAIN NOTED. RIGHT UPPER ARM MID LINE G# 18 INTACT RUNNING 20 MEQ POTASSIUM CHLORIDE IN D51/2 NS AT 125 ML/HR.ALL SAFETY MEASURES IN PLACE . HEAD OF BED ELEVATED, CALL LIGHT AND TABLE WITHIN REACH, SIDE RAILS UP X 2, BED IN LOWEST LOCKED POSITION, WILL CONTINUE TO MONITOR CLOSELY.
[2022-03-28 20:00] VITALS: BP 130/68
[2022-03-28] MEDS: LORAZEPAM 1 MG TABLET PO PRN (23:49)
[2022-03-29] VITALS: BP 145/77
[2022-03-29] MEDS: oxyCODONE IR immediate release 5 MG PO PRN ×2 (03:36→19:47)
[2022-03-29 04:00] VITALS: BP 145/78
[2022-03-29 06:36] LABS: CALCIUM, SERUM 6.6 mg/dL (8.5-10.1); CREATININE 0.5 mg/dL (0.6-1.3); MAGNESIUM 2.2 mg/dL (1.8-2.4); PHOSPHORUS 1.6 mg/dL (2.5-4.9); POTASSIUM 2.9 mmol/L (3.5-5.1)
[2022-03-29 06:42] LABS: BASOPHILS % (AUTO) 0.1 % (0.0-2.0); HEMATOCRIT 30 % (33-45); HEMOGLOBIN 9.9 g/dL (11.5-14.8); LYMPHOCYTES # (AUTO) 0.8 K/uL (0.8-4.8); LYMPHOCYTES % (AUTO) 3.8 % (20.0-44.0); MEAN CORPUSCULAR HGB CONC 33 g/dl (31.0-36.0); MEAN CORPUSCULAR VOLUME 95 fL (82-100); MONOCYTES # (AUTO) 0.7 K/uL (0.1-1.30); MONOCYTES % (AUTO) 3.2 % (2.0-12.0); NEUTROPHILS # (AUTO) 19.9 K/uL (1.8-8.9); NEUTROPHILS % (AUTO) 92.9 % (43.0-81.0); PLATELET COUNT (AUTO) 234 K/uL (150-450); RED BLOOD CELL COUNT(AUTO) 3.13 MIL/uL (4.0-5.2); WHITE BLOOD COUNT (AUTO) 21.4 K/uL (4.3-11.0)
--- NOTE | 2022-03-29 06:49 | NUR ---
MS RN CLOSING NOTES: PATIENT AWAKE IN BED.PATIENT IS A/O X 4.ON O2 INHALATION VIA NASAL CANNULA @ 2 L/MIN.TOLERATING WELL, NO SOB NOTED. NO PAIN NOTED AT THIS TIME. RIGHT UPPER ARM MID LINE G# 18 INTACT RUNNING 20 MEQ POTASSIUM CHLORIDE IN D51/2 NS AT 125 ML/HR. ALL DUE MEDS GIVEN ORDERED.ALL SAFETY MEASURES IN PLACE . HEAD OF BED ELEVATED, CALL LIGHT AND TABLE WITHIN REACH, SIDE RAILS UP X 2, BED IN LOWEST LOCKED POSITION, WILL ENDORSE INCOMING SHIFT FOR KATY.
--- NOTE | 2022-03-29 07:00 | NUR ---
MS RN OPENING NOTES RECEIVED PATIENT IN BED AWAKE, ALERT AND ORIENTED. PATIENT IS A/O X 4. ON O2 INHALATION VIA NASAL CANNULA @ 2 L/MIN, INFUSING WELL. NO S/SX OF RESPIRATORY DISTRESS NOTED. NO PAIN NOTED AT THIS TIME. RIGHT UPPER ARM MID LINE G# 18 INTACT RUNNING 20 MEQ POTASSIUM CHLORIDE IN D51/2 NS AT 125 ML/HR. ALL SAFETY MEASURES IN PLACE . SAFETY MEASURES MAINTAINED WITH BED ON LOW POSITION AND LOCKED. SIDE RAILS X2. CALL LIGHT WITHIN REACH. WILL CONTINUE WITH THE PLAN OF CARE.
[2022-03-29 08:00] VITALS: BP 142/77
[2022-03-29] MEDS: PANTOPRAZOLE 40 MG TABLET.DR PO SCH (08:01)
[2022-03-29] MEDS: LEVOTHYROXINE SODIUM 50 MCG TABLET PO SCH (08:01)
[2022-03-29] MEDS: ENSURE ENLIVE CHOC 237 ML CAN PO SCH ×2 (08:37→18:31)
[2022-03-29] MEDS: POTASSIUM CHLORIDE 20 MEQ TAB.PRT.SR PO SCH ×3 (09:03→11:09)
[2022-03-29] MEDS: MULTIPLE VIT (LYCOPENE/FA/MV,CA,IRON,MIN/LUT)1 TAB PO SCH (09:03)
[2022-03-29] MEDS: FOLIC ACID 1 MG TABLET PO SCH (09:04)
[2022-03-29] MEDS: CALCIUM CARBONATE (1250) 500 MG TABLET PO SCH (09:04)
[2022-03-29] MEDS: MAGNESIUM OXIDE 400 MG TABLET PO SCH (09:48)
[2022-03-29] MEDS: Potassium Chloride 20 MEQ in IV D5/0.45 NACL 1,000 ML IV SCH ×2 (09:55→18:17)
[2022-03-29 12:00] VITALS: BP 136/79
[2022-03-29] MEDS: HYDROCODONE/APAP 5/325MG TABLET PO PRN (12:13)
--- NOTE | 2022-03-29 12:20 | NUR ---
MS RN NOTES PT IN BED ALERT, AWAKE AND ORIENTED. VERBALIZED PAIN AT THE BACK. PAIN MEDICATION GIVEN FOR PAIN MANAGEMENT. SAFETY MEASURES MAINTAINED WITH BED ON LOW POSITION AND LOCKED. SIDE RAILS UP X2. CALL LIGHT WITHIN REACH.
--- NOTE | 2022-03-29 13:50 | NUR ---
MS RN NOTES PAIN MEDICATION NOT EFFECTIVE VERBALIZED BY THE PATIENT. HOT PACKS GIVEN TO HELP ALLEVIATE PAIN. SAFETY MEASURES MAINTAINED. WILL REASSESS PAIN AGAIN.
[2022-03-29] MEDS: CEFTRIAXONE 1 G in IV D5W 50 ML IV SCH (15:36)
[2022-03-29 16:00] VITALS: BP 141/76
[2022-03-29 16:15] LABS: IRON, SERUM 100 ug/dl (50-175); TOTAL IRON BINDING CAPACITY 219 ug/dl (250-450)
[2022-03-29 16:51] LABS: FERRITIN 1750 ng/mL (8-388)
[2022-03-29] MEDS: LORAZEPAM 1 MG TABLET PO PRN (17:07)
[2022-03-29 17:32] LABS: BAND % (MANUAL) 6 % (0.0-5.0); LYMPHOCYTES % (MANUAL) 6 % (16-48); MONOCYTES % (MANUAL) 3 % (0-11.0); NEUTROPHILS % (MANUAL) 85 (42-76)
--- NOTE | 2022-03-29 18:53 | NUR ---
MS RN CLOSING NOTES PATIENT IN BED AWAKE, ALERT AND ORIENTED. PATIENT IS A/O X 4. ON O2 INHALATION VIA NASAL CANNULA @ 2 L/MIN. NO S/SX OF RESPIRATORY DISTRESS NOTED. RIGHT UPPER ARM MID LINE G# 18 INTACT RUNNING 20 MEQ POTASSIUM CHLORIDE IN D51/2 NS AT 125 ML/HR, INFUSING WELL. SAFETY MEASURES MAINTAINED WITH BED ON LOW POSITION AND LOCKED. SIDE RAILS X2. CALL LIGHT WITHIN REACH. WILL ENDORSE TO THE NEXT SHIFT FOR CONTINUITY OF CARE.
[2022-03-29 20:00] VITALS: BP_SYST 143; BP_DIAS 81; BP_DIAS 83
--- NOTE | 2022-03-29 20:00 | NUR ---
MS RN OPENING NOTES: RECEIVED PATIENT AWAKE IN BED, ACCOMPANIED BY FAMILY, BED IN LOW POSITION CALL LIGHTS WITHIN REACH, NO COMPLAIN OF PAIN AND DISCOMFORT AT THIS TIME, ON O2 INHALATION AT 2LPM SATURATING WELL, PATIENT IS A/O X4 ABLE TO MAKE NEEDS KNOWN, AMBULATORY WITH SUPERVISION, IV LINE AT MARK ML #18 WITH ON GOING KCL 20 MEQ IN D5 1/2 NSS @125ML/HR INFUSING WELL, PATIENT ON PAIN MANAGEMENT, PATIENT KEPT CLEAN AND DRY ALL NEEDS MET WILL CONTINUE TO MONITOR
[2022-03-30] MEDS: Potassium Chloride 20 MEQ in IV D5/0.45 NACL 1,000 ML IV SCH ×3 (02:49→17:55)
[2022-03-30] MEDS: oxyCODONE IR immediate release 5 MG PO PRN ×3 (03:47→17:14)
--- NOTE | 2022-03-30 06:39 | NUR ---
MS RN CLOSING NOTES: PATIENT SLEEP IN BED COMFORTABLY AROUSABLE TO VERBAL STIMULI, BED IN LOW POSITION CALL LIGHTS WITHIN REACH, ON O2 INHALATION AT 2LPM SATURATING WELL, AMBULATORY TO BEDSIDE COMMODE WITH ASSISTANCE, IV LINE #18 WITH KCL 20 MEQ @125ML/HR INFUSING WELL, ON PAINT MANAGEMENT, PATIENT KEPT CLEAN AND DRY ALL NEEDS MET END
[2022-03-30 06:46] LABS: BASOPHILS % (AUTO) 0.1 % (0.0-2.0); HEMATOCRIT 30 % (33-45); LYMPHOCYTES # (AUTO) 0.6 K/uL (0.8-4.8); LYMPHOCYTES % (AUTO) 3.2 % (20.0-44.0); MEAN CORPUSCULAR HGB CONC 33 g/dl (31.0-36.0); MEAN CORPUSCULAR VOLUME 94 fL (82-100); MONOCYTES # (AUTO) 0.9 K/uL (0.1-1.30); MONOCYTES % (AUTO) 4.6 % (2.0-12.0); NEUTROPHILS # (AUTO) 17.7 K/uL (1.8-8.9); NEUTROPHILS % (AUTO) 92.1 % (43.0-81.0); PLATELET COUNT (AUTO) 238 K/uL (150-450); RED BLOOD CELL COUNT(AUTO) 3.24 MIL/uL (4.0-5.2); WHITE BLOOD COUNT (AUTO) 19.2 K/uL (4.3-11.0)
[2022-03-30 07:22] LABS: CALCIUM, SERUM 6.3 mg/dL (8.5-10.1); CREATININE 0.5 mg/dL (0.6-1.3); MAGNESIUM 2.1 mg/dL (1.8-2.4); PHOSPHORUS 1.2 mg/dL (2.5-4.9); POTASSIUM 3.2 mmol/L (3.5-5.1)
--- NOTE | 2022-03-30 07:35 | NUR ---
MS RN OPENING NOTES: RECEIVED PATIENT AWAKE IN BED, NO SOB OR DISTRESS NOTED NO COMPLAIN OF PAIN AND DISCOMFORT AT THIS TIME, ON O2 @ 2L INHALATION SATURATING WELL, PATIENT IS A/O X4 ABLE TO MAKE NEEDS KNOWN, AMBULATORY WITH SUPERVISION , CONTINENT AND USES COMMODE , IV LINE AT MARK ML #18 WITH ON GOING KCL 20 MEQ IN D5 1/2 NS @125ML/HR INFUSING WELL, PATIENT ON PAIN MANAGEMENT, PATIENT KEPT CLEAN AND DRY ALL NEEDS MET , SAFETY MEASURES PROVIDED , SIDERAILS UP X 2 AND CALL LIGHT WITHIN REACH WILL CONTINUE TO MONITOR
[2022-03-30] MEDS: LEVOTHYROXINE SODIUM 50 MCG TABLET PO SCH (07:57)
[2022-03-30] MEDS: PANTOPRAZOLE 40 MG TABLET.DR PO SCH (07:57)
[2022-03-30 08:00] VITALS: BP 138/70
[2022-03-30] MEDS: ENSURE ENLIVE CHOC 237 ML CAN PO SCH ×2 (08:31→17:07)
[2022-03-30] MEDS: MAGNESIUM OXIDE 400 MG TABLET PO SCH (08:52)
[2022-03-30] MEDS: CALCIUM CARBONATE (1250) 500 MG TABLET PO SCH (08:52)
[2022-03-30] MEDS: FOLIC ACID 1 MG TABLET PO SCH (08:52)
[2022-03-30] MEDS: LORAZEPAM 1 MG TABLET PO PRN ×2 (08:53→17:14)
[2022-03-30] MEDS: HYDROCODONE/APAP 5/325MG TABLET PO PRN (08:53)
[2022-03-30] MEDS: MULTIPLE VIT (LYCOPENE/FA/MV,CA,IRON,MIN/LUT)1 TAB PO SCH (08:55)
--- NOTE | 2022-03-30 09:00 | NUR ---
RN NOTES PATIENT NOTED TO BE ANXIOUS AND C/O OF PAIN AT THIS TIME , ATIVAN AND NORCO GIVEN ORDERED . REPOSITION FOR COMFORT AND ASSISTED TO COMMODE FOR URINATION .
--- NOTE | 2022-03-30 09:30 | NUR ---
RN NOTES SEEN [facility] FOR PT EVALUATION AND TREATMENT
[2022-03-30] MEDS: POTASSIUM CHLORIDE 20 MEQ TAB.PRT.SR PO SCH ×2 (11:15→12:36)
[2022-03-30] MEDS ORDERED: K PHOS NEUTRAL 250 MG TABLET PO ONE (11:30)
[2022-03-30 14:33] LABS: ALBUMIN 2.6 g/dL (3.4-5.0); BILIRUBIN,DIRECT 0.6 mg/dL (0.0-0.2); BILIRUBIN,TOTAL 1.1 mg/dL (0.2-1.0); TOTAL PROTEIN, SERUM 5.8 g/dL (6.4-8.2)
[2022-03-30] MEDS: CEFTRIAXONE 1 G in IV D5W 50 ML IV SCH (15:19)
[2022-03-30] MEDS ORDERED: LACTULOSE 10 G/15 ML UDC (PYXIS) PO ONE (16:00)
[2022-03-30] MEDS ORDERED: SORBITOL SOLUTION 70% 30 ML SOLUTION PO ONE (16:00)
[2022-03-30] MEDS: DOCUSATE SODIUM 250 MG CAPSULE PO SCH (16:21)
[2022-03-30] MEDS: SENNOSIDES 8.6 MG TABLET PO PRN ×3 (16:23→16:27)
--- NOTE | 2022-03-30 17:00 | NUR ---
RN NOTES PATIENT C/O OF BEING CONSTIPATED AND MD AWARE AND WITH ORDER OF LACTULOSE AND SENNA S TAB , AND SORBITOL SOLUTION ORDERED
[2022-03-30] MEDS: SENNOSIDES/DOCUSATE SODIUM 1 TAB TABLET PO SCH (17:06)
--- NOTE | 2022-03-30 18:49 | NUR ---
MS RN CLOSING NOTES: PATIENT AWAKE IN BED, NO SOB OR DISTRESS NOTED. COMPLAINT OF PAIN AND DISCOMFORT AND NORCO AND OXI IR GIVEN ORDERED AND WITH HELP , ON O2 @ 2L INHALATION SATURATING WELL, PATIENT IS A/O X4 ABLE TO MAKE NEEDS KNOWN, AMBULATORY WITH SUPERVISION , CONTINENT AND USES COMMODE , IV LINE AT MARK ML #18 WITH ON GOING KCL 20 MEQ IN D5 1/2 NS @125ML/HR INFUSING WELL, PATIENT ON PAIN MANAGEMENT, PATIENT KEPT CLEAN AND DRY ALL NEEDS MET , SAFETY MEASURES PROVIDED , SIDERAILS UP X 2 AND CALL LIGHT WITHIN REACH WILL ENDORSED TO NEXT SHIFT
--- NOTE | 2022-03-30 19:30 | NUR ---
MS RN OPENING NOTE RECEIVED PT AWAKE IN BED. A/O X4 AND ABLE TO MAKE NEEDS KNOWN. FAMILY AT BEDSIDE. PT ON O2 @ 2LPM VIA NC, TOLERATING WELL. NO SOB OR S/S OF RESPIRATORY DISTRESS. BREATHING EVEN AND UNLABORED. IV ACCESS MARK ML RUNNING KCL 20 MEQ @ 125 ML/HR, INTACT AND PATENT. SAFETY PRECAUTIONS IN PLACE. BED IN LOWEST LOCKED POSITION, HOB ELEVATED, SIDE RAILS UP X3, AND CALL LIGHT AND TABLE WITHIN REACH. ALL NEEDS MET AT THIS TIME.
[2022-03-30] MEDS ORDERED: oxyCODONE IR immediate release 5 MG PO PRN (20:00)
[2022-03-30 20:15] VITALS: BP 119/69
[2022-03-30 20:44] LABS: BAND % (MANUAL) 1 % (0.0-5.0); LYMPHOCYTES % (MANUAL) 7 % (16-48); MONOCYTES % (MANUAL) 1 % (0-11.0); NEUTROPHILS % (MANUAL) 91 (42-76)
[2022-03-31] MEDS ORDERED: LORAZEPAM 1 MG TABLET PO PRN
[2022-03-31] MEDS: LORAZEPAM 1 MG TABLET PO PRN ×2 (00:20→12:05)
--- NOTE | 2022-03-31 00:25 | NUR ---
RN NOTE PT COMPLAINED OF ANXIETY. ADMINISTERED ATIVAN 1 MG FOR ANXIETY ORDERED. MADE COMFORTABLE IN BED. ALL NEEDS MET AT THIS TIME.
[2022-03-31] MEDS: Potassium Chloride 20 MEQ in IV D5/0.45 NACL 1,000 ML IV SCH ×2 (01:39→10:12)
[2022-03-31] MEDS: oxyCODONE IR immediate release 5 MG PO PRN ×3 (03:12→20:53)
--- NOTE | 2022-03-31 03:19 | NUR ---
RN NOTE PT COMPLAINED OF GENERALIZED PAIN 12/03. ADMINISTERED OXY IR 15 MG FOR SEVERE PAIN ORDERED. MADE COMFORTABLE IN BED. ALL NEEDS MET AT THIS TIME.
--- NOTE | 2022-03-31 06:44 | NUR ---
MS RN CLOSING NOTE PT AWAKE IN BED. A/O X4 AND ABLE TO MAKE NEEDS KNOWN. PT ON O2 @ 2LPM VIA NC, TOLERATING WELL. NO SOB OR S/S OF RESPIRATORY DISTRESS. BREATHING EVEN AND UNLABORED. IV ACCESS MARK ML RUNNING KCL 20 MEQ @ 125 ML/HR, INTACT AND PATENT. KEPT CLEAN AND DRY. MEDS GIVEN ORDERED. SAFETY PRECAUTIONS IN PLACE AT ALL TIMES. BED IN LOWEST LOCKED POSITION, HOB ELEVATED, SIDE RAILS UP X3, AND CALL LIGHT AND TABLE WITHIN REACH. ALL NEEDS MET AT THIS TIME AND WILL ENDORSE TO ONCOMING NURSE FOR KATY.
[2022-03-31 07:18] LABS: MAGNESIUM 2.2 mg/dL (1.8-2.4); PHOSPHORUS 1.5 mg/dL (2.5-4.9)
--- NOTE | 2022-03-31 07:23 | NUR ---
RN OPENING NOTE RECEIVED PATIENT ASLEEP IN BED, EASILY AROUSED, NO SIGNS OF ACUTE DISTRESS NOTED. ON O2 @2LPM VIA N/C, BREATHING EVEN AND UNLABORED. NOTED WITH RIGHT UPPER ARM MIDLINE #18G, INTACT AND PATENT, WITH NS + KCL 20 MEQ RUNNING AT 125 ML/HR. SAFETY MEASURE MEASURE IN PLACE. BED IN LOWEST AND LOCKED POSITION, SIDE RAILS UP X3, CALL LIGHT PLACED WITHIN EASY REACH. WILL CONTINUE TO MONITOR PATIENT.
[2022-03-31 07:53] LABS: CREATININE 0.5 mg/dL (0.6-1.3)
[2022-03-31] MEDS: LEVOTHYROXINE SODIUM 50 MCG TABLET PO SCH (07:58)
[2022-03-31] MEDS: PANTOPRAZOLE 40 MG TABLET.DR PO SCH (07:58)
[2022-03-31] MEDS: MAG HYDROX/AL HYDROX/SIMETH 30 ML UDC PO PRN (07:58)
[2022-03-31 08:00] VITALS: BP 133/80
[2022-03-31] MEDS: BISACODYL SUPP (10 MG) 10 MG/SUPP.RECT SUPP.RECT RC PRN (08:06)
[2022-03-31] MEDS: ENSURE ENLIVE CHOC 237 ML CAN PO SCH ×2 (08:10→17:00)
[2022-03-31 08:11] LABS: POTASSIUM 2.8 mmol/L (3.5-5.1)
[2022-03-31 08:14] LABS: CALCIUM, SERUM 5.9 mg/dL (8.5-10.1)
[2022-03-31] MEDS: HYDROCODONE/APAP 5/325MG TABLET PO PRN (08:48)
[2022-03-31] MEDS: MAGNESIUM OXIDE 400 MG TABLET PO SCH (10:00)
[2022-03-31] MEDS: FOLIC ACID 1 MG TABLET PO SCH (10:00)
[2022-03-31] MEDS: DOCUSATE SODIUM 250 MG CAPSULE PO SCH ×2 (10:01→16:24)
[2022-03-31] MEDS: CALCIUM CARBONATE (1250) 500 MG TABLET PO SCH (10:01)
[2022-03-31] MEDS: SENNOSIDES/DOCUSATE SODIUM 1 TAB TABLET PO SCH (10:01)
[2022-03-31] MEDS: MULTIPLE VIT (LYCOPENE/FA/MV,CA,IRON,MIN/LUT)1 TAB PO SCH (10:02)
[2022-03-31] MEDS: POTASSIUM CL. PREMIX PERIPHER. 50 ML IV SCH ×2 (13:00→13:11)
[2022-03-31] MEDS ORDERED: POTASSIUM CHLORIDE 20 MEQ POWDER PACKET PO ONE (13:30)
[2022-03-31] MEDS: CEFTRIAXONE 1 G in IV D5W 50 ML IV SCH (15:29)
[2022-03-31] MEDS ORDERED: K PHOS NEUTRAL 250 MG TABLET PO ONE (15:30)
[2022-03-31] MEDS ORDERED: GADOTERATE MEGLUMINE 10 MMOL/20 ML VIAL IV ONE (17:32)
--- NOTE | 2022-03-31 18:47 | NUR ---
RN CLOSING NOTE PATIENT ASLEEP IN BED, EASILY AROUSED, NO SIGNS OF ACUTE DISTRESS NOTED. FAMILY AT BEDSIDE. REMAINS ON O2 @2LPM VIA N/C, BREATHING EVEN AND UNLABORED. NOTED WITH RIGHT UPPER ARM MIDLINE #18G, INTACT AND PATENT, WITH NS + KCL 20 MEQ RUNNING AT 125 ML/HR. SAFETY MEASURE MEASURE MAINTAINED. BED IN LOWEST AND LOCKED POSITION, SIDE RAILS UP X3, CALL LIGHT PLACED WITHIN EASY REACH. WILL ENDORSE TO NEXT SHIFT FOR CONTINUITY OF CARE.
[2022-03-31 20:00] VITALS: BP_SYST 122; BP_SYST 127; BP_DIAS 67
--- NOTE | 2022-03-31 20:00 | NUR ---
MS RN NOTES RECEIVED ON BED,ON HIGH FOWLERS POSITION,BREATHING NON LABORED,O2 IN USED AT 3L/NC WITH HUMIDIFIER.O2 SAT 97%, WITH RIGHT UPPER MIDLINE,IVF NS WITH 20MEQ KCL INFUSING WELL VIA IV PUMP.FAMILY MEMBERS AT BEDSIDE.ASSISTED TO BEDSIDE COMMODE TO PEE.CALL LIGHT IN REACH,NEEDS ANTICIPATED.
--- NOTE | 2022-03-31 20:53 | NUR ---
MS RN NOTES PAIN MANAGEMENT C/O GENERALIZED PAIN 8/10 ON PAIN SCALE.OXY IR 15MG PO GIVEN PER PATIENT REQUEST.VITAL SIGNS STABLE.
[2022-04-01] MEDS: MAG HYDROX/AL HYDROX/SIMETH 30 ML UDC PO PRN (02:21)
--- NOTE | 2022-04-01 02:21 | NUR ---
MS RN NOTES AWAKE,ASSISTED TO BEDSIDE COMMODE TO PEE. BACK TO BED HAVING STOMACH UPSET,MAALOX 30ML PO GIVEN PER PATIENT REQUEST.
[2022-04-01] MEDS: oxyCODONE IR immediate release 5 MG PO PRN ×4 (03:12→21:40)
--- NOTE | 2022-04-01 03:12 | NUR ---
MS RN NOTES PAIN MANAGEMENT C/O LOWER BACK PAIN 8/10 ON PAIN SCALE.OXY IR 15 MG PO GIVEN ORDERED AND PER PATIENT REQUEST.VITAL SUGNS WITH IN NORMAL LIMITS.O2 SAT 97%.
[2022-04-01 06:15] LABS: BASOPHILS % (AUTO) 0.1 % (0.0-2.0); EOSINOPHILS % (AUTO) 0.1 % (0.0-6.0); HEMATOCRIT 32 % (33-45); HEMOGLOBIN 10.4 g/dL (11.5-14.8); LYMPHOCYTES # (AUTO) 0.6 K/uL (0.8-4.8); MEAN CORPUSCULAR HGB CONC 33 g/dl (31.0-36.0); MEAN CORPUSCULAR VOLUME 94 fL (82-100); MONOCYTES % (AUTO) 5.1 % (2.0-12.0); NEUTROPHILS # (AUTO) 18.2 K/uL (1.8-8.9); NEUTROPHILS % (AUTO) 91.7 % (43.0-81.0); PLATELET COUNT (AUTO) 273 K/uL (150-450); RED BLOOD CELL COUNT(AUTO) 3.38 MIL/uL (4.0-5.2); WHITE BLOOD COUNT (AUTO) 19.8 K/uL (4.3-11.0)
--- NOTE | 2022-04-01 06:38 | NUR ---
MS RN NOTES LYING ON BED WITH HOB ELEVATED.NO SOB.MOANS,TALKING TO SELF.SALINE LOCK RIGHT UPPER ARM INTACT AND PATENT.IN NO ACUTE DISTRESS.
[2022-04-01 07:09] LABS: CALCIUM, SERUM 6.3 mg/dL (8.5-10.1); CREATININE 0.5 mg/dL (0.6-1.3); MAGNESIUM 2.5 mg/dL (1.8-2.4); PHOSPHORUS 1.5 mg/dL (2.5-4.9); POTASSIUM 3.8 mmol/L (3.5-5.1)
--- NOTE | 2022-04-01 07:30 | NUR ---
MS RN OPENING NOTE RECEIVED PT AWAKE AND RESTING IN BED. PT IS A/O X4, ABLE TO MAKE NEEDS KNOWN. ON O2 AT 3L/MIN VIA NASAL CANNULA, TOLERATING WELL. NO SOB NOTED. NOT IN ANY SIGN OF RESPIRATORY DISTRESS. IV ACCESS ON MARK MIDLINE INTACT AND PATENT. SAFETY MEASURES IN PLACE: BED IN LOWEST AND LOCKED POSITION, SIDE RAILS UP X2, AND CALL LIGHT WITHIN REACH. WILL CONTINUE TO MONITOR PT.
[2022-04-01 08:00] VITALS: BP 137/71
[2022-04-01] MEDS: PANTOPRAZOLE 40 MG TABLET.DR PO SCH (08:29)
[2022-04-01] MEDS: LEVOTHYROXINE SODIUM 50 MCG TABLET PO SCH (08:29)
[2022-04-01] MEDS: ENSURE ENLIVE CHOC 237 ML CAN PO SCH ×2 (08:30→17:00)
[2022-04-01] MEDS: CALCIUM CARBONATE (1250) 500 MG TABLET PO SCH (09:29)
[2022-04-01] MEDS: FOLIC ACID 1 MG TABLET PO SCH (09:29)
[2022-04-01] MEDS: SENNOSIDES/DOCUSATE SODIUM 1 TAB TABLET PO SCH (09:29)
[2022-04-01] MEDS: DOCUSATE SODIUM 250 MG CAPSULE PO SCH ×2 (09:29→16:05)
[2022-04-01] MEDS: MAGNESIUM OXIDE 400 MG TABLET PO SCH (09:29)
[2022-04-01] MEDS: MULTIPLE VIT (LYCOPENE/FA/MV,CA,IRON,MIN/LUT)1 TAB PO SCH (09:36)
--- NOTE | 2022-04-01 09:40 | NUR ---
RN NOTE PT C/O GENERALIZED BODY PAIN WITH PAIN SCALE LEVEL OF 8/10 AND REQUESTED FOR HER PAIN MEDICATION. OXYCODONE IR 15MG GIVEN ORDERED PRN Q6HRS FOR SEVERE PAIN. WILL MONITOR AND REASSESS PT.
[2022-04-01 10:10] LABS: BAND % (MANUAL) 12 % (0.0-5.0); BASOPHILS % (MANUAL) 0 % (0.0-2.0); EOSINOPHILS % (MANUAL) 0 % (0-4); LYMPHOCYTES % (MANUAL) 6 % (16-48); MONOCYTES % (MANUAL) 4 % (0-11.0); NEUTROPHILS % (MANUAL) 78 (42-76)
[2022-04-01] MEDS: CEFTRIAXONE 1 G in IV D5W 50 ML IV SCH (15:08)
[2022-04-01 16:00] VITALS: BP 105/64
[2022-04-01] MEDS ORDERED: K PHOS NEUTRAL 250 MG TABLET PO ONE (16:00)
--- NOTE | 2022-04-01 19:20 | NUR ---
MS RN NOTES RECEIVED ON BED SLEEPING,AROUSABLE TO VERBAL STIMULI,BREATHING REGULAR,NOT IN ANY FORM OF DISTRESS,O2 IN USED AT 2/NC TO KEEP O2 SAT ABOVE 90%/.RIGHT UPPER ARM MIDLINE INTACT AND PATENT.CONTINENT,WITH BEDSIDE COMMODE.ASSIST WITH ADL'S.CALL LIGHT IN REACH,NEEDS ANTICIPATED.
--- NOTE | 2022-04-01 19:31 | NUR ---
MS RN CLOSING NOTE PT AWAKE AND RESTING IN BED. PT IS A/O X4, ABLE TO MAKE NEEDS KNOWN. ON O2 AT 3L/MIN VIA NASAL CANNULA, TOLERATING WELL. NO SOB NOTED. NOT IN ANY SIGN OF RESPIRATORY DISTRESS. IV ACCESS ON MARK MIDLINE INTACT AND PATENT. ALL NEEDS ATTENDED. KEPT CLEAN AND COMFORTABLE AT ALL TIMES. SAFETY MEASURES IN PLACE: BED IN LOWEST AND LOCKED POSITION, SIDE RAILS UP X2, AND CALL LIGHT WITHIN REACH. ENDORSED TO DIVISION SERGEANT NURSE FOR KATY.
[2022-04-01 20:00] VITALS: BP_SYST 120; BP_SYST 135; BP_DIAS 72; BP_DIAS 73
--- NOTE | 2022-04-01 21:40 | NUR ---
MS RN NOTES C/O ABDOMINAL PAIN 9/10 ON PAIN SCALE,MOANS,RUBBING ABDOMEN.MEDICATED WITH OXY IR 15MG PO ORDERED AND PER PATIENT REQUEST.VITAL SIGNS STABLE.
--- NOTE | 2022-04-01 22:55 | NUR ---
MS RN NOTES REPORT GIVEN TO JAIME RAMOS FOR KATY
--- NOTE | 2022-04-01 23:00 | NUR ---
MS RN NOTES - RECEIVED PATIENT AWAKE, BED IN HIGH DOMINGUEZ'S. A/O X4, WEAKNESS NOTED. BREATHING EVEN BUT SHALLOW, ON O2 AT 3LPM VIA NASAL CANULA. C/O MODERATE LOWER ABDOMINAL PAIN. HAS RIGHT UPPER ARM MIDLINE #18G AND SALINE LOCKED. NO S/S OF INFILTRATION NOTED. HAS RIGHT CHEST WALL PORT-A-CATH. SAFETY PRECAUTIONS IN PLACE: BED LOCKED AND IN LOW POSITION, SIDE RAILS UP X2, CALL LIGHT WITHIN REACH. WILL CONTINUE PLAN OF CARE.
[2022-04-02] MEDS: MAG HYDROX/AL HYDROX/SIMETH 30 ML UDC PO PRN (04:01)
--- NOTE | 2022-04-02 04:09 | NUR ---
GAVE PRN MAALOX PER PATIENT'S REQUEST. ALSO C/O LEFT LOWER LEG/FOOT PAIN, APPLIED WARM COMPRESS AND ELEVATED LLE.
[2022-04-02] MEDS: LORAZEPAM 1 MG TABLET PO PRN ×2 (06:30→23:18)
--- NOTE | 2022-04-02 06:37 | NUR ---
FOUND PATIENT'S HOB ON LOW SEMI-DOMINGUEZ'S. VERBALIZED SHE CAN'T BREATHE, FAST AND SHALLOW BREATHING NOTED. INCREASED O2 TO 5LPM AND WILL TITRATE BACK TO 2LPM ONCE PATIENT HAS CALMED DOWN. ADMINISTERED PRN ATIVAN 1MG TO HELP WITH ANXIETY.
--- NOTE | 2022-04-02 06:57 | NUR ---
MS RN CLOSING NOTES - PATIENT IN BED ASLEEP, EASY TO AROUSE. ABLE TO VERBALIZE NEEDS. TITRATED O2 TO 2LPM, SATURATING AT 92%-94%. AFEBRILE. DENIES PAIN AT THIS TIME. NOT IN RESPIRATORY OR CARDIAC DISTRESS. RIGHT UPPER ARM MIDLINE INTACT, PATENT AND FLUSHING. RIGHT CHEST WALL PORT-A-CATH PLACEMENT CLEAN AND DRY. ABLE TO USE BEDSIDE COMMODE WITH ASSISTANCE. CLEAR DARK YELLOW/ORANGE URINE NOTED. FIRM AND DISTENDED ABDOMEN NOTED. ALL DUE MEDS GIVEN AND NEEDS ATTENDED. SAFETY PRECAUTIONS MAINTAINED. WILL ENDORSE TO NEXT SHIFT FOR CONTINUITY OF CARE.
[2022-04-02] MEDS: PANTOPRAZOLE 40 MG TABLET.DR PO SCH (07:55)
[2022-04-02] MEDS: LEVOTHYROXINE SODIUM 50 MCG TABLET PO SCH (07:55)
[2022-04-02] MEDS: ENSURE ENLIVE CHOC 237 ML CAN PO SCH ×2 (08:07→17:09)
[2022-04-02] MEDS: oxyCODONE IR immediate release 5 MG PO PRN ×3 (08:12→20:45)
[2022-04-02] MEDS: MAGNESIUM OXIDE 400 MG TABLET PO SCH (08:13)
[2022-04-02] MEDS: DOCUSATE SODIUM 250 MG CAPSULE PO SCH ×2 (08:13→17:20)
[2022-04-02] MEDS: CALCIUM CARBONATE (1250) 500 MG TABLET PO SCH (08:13)
[2022-04-02] MEDS: FOLIC ACID 1 MG TABLET PO SCH (08:13)
[2022-04-02] MEDS: SENNOSIDES/DOCUSATE SODIUM 1 TAB TABLET PO SCH (08:13)
[2022-04-02] MEDS: MULTIPLE VIT (LYCOPENE/FA/MV,CA,IRON,MIN/LUT)1 TAB PO SCH (08:13)
--- NOTE | 2022-04-02 08:15 | NUR ---
RN NOTE PT C/O GENERALIZED BODY PAIN WITH PAIN SCALE LEVEL OF 9/10 AND REQUESTED FOR HER PAIN MEDICATION. OXYCODONE IR 15MG GIVEN ORDERED PRN Q6HRS FOR SEVERE PAIN. WILL MONITOR AND REASSESS PT.
[2022-04-02] MEDS ORDERED: PANT40TA49 PO (12:37)
[2022-04-02] MEDS ORDERED: BISA10SU61 RC (12:37)
[2022-04-02] MEDS ORDERED: OXYC5CAP18 PO (12:37)
[2022-04-02] MEDS ORDERED: CEFT1FRO2 IV (12:37)
[2022-04-02] MEDS: CEFTRIAXONE 1 G in IV D5W 50 ML IV SCH (14:31)
[2022-04-02] MEDS ORDERED: oxyCODONE IR immediate release 5 MG PO PRN (18:15)
--- NOTE | 2022-04-02 19:17 | NUR ---
MS RN CLOSING NOTE PT AWAKE AND RESTING IN BED WITH BROTHER AT BEDSIDE. PT IS A/O X4, ABLE TO MAKE NEEDS KNOWN. ON O2 AT 2L/MIN VIA NASAL CANNULA, TOLERATING WELL. NO SOB NOTED. NOT IN ANY SIGN OF RESPIRATORY DISTRESS. IV ACCESS ON MARK MIDLINE INTACT AND PATENT. ALL NEEDS ATTENDED. KEPT CLEAN AND COMFORTABLE AT ALL TIMES. SAFETY MEASURES IN PLACE: BED IN LOWEST AND LOCKED POSITION, SIDE RAILS UP X2, AND CALL LIGHT WITHIN REACH. ENDORSED TO BIOSTATISTICS PROFESSOR NURSE FOR KATY.
[2022-04-02 20:00] VITALS: BP 161/80
--- NOTE | 2022-04-02 23:31 | NUR ---
noc rn note patient request for ativan at this time. given ativan 1mg po PRN as ordered.
--- NOTE | 2022-04-03 | NUR ---
noc rn note received patient in bed, a/ox4. Brother at bedside. no s/s of apparent distress on 2lpm of o2 via nc. c/o pain on her back and abdomen, given hot pack for now. no fluids running at this time. able to make needs known, needs attended for now. brother verbalized concern of discharging patient to Rehab and per brother he would want to talk to Dr. Graves in the morning. emotional support given. call light within reach. safety in place. will cont. with pain management with patient.
[2022-04-03] MEDS: oxyCODONE IR immediate release 5 MG PO PRN ×2 (03:06→09:11)
[2022-04-03 07:00] VITALS: BP 113/32
--- NOTE | 2022-04-03 07:25 | NUR ---
MS RN OPENING NOTE RECEIVED PT AWAKE AND RESTING IN BED. PT IS A/O X4, ABLE TO MAKE NEEDS KNOWN. ON O2 AT 2L/MIN VIA NASAL CANNULA, TOLERATING WELL. NO SOB NOTED. NOT IN ANY SIGN OF RESPIRATORY DISTRESS. IV ACCESS ON MARK MIDLINE INTACT AND PATENT. SAFETY MEASURES IN PLACE: BED IN LOWEST AND LOCKED POSITION, SIDE RAILS UP X2, AND CALL LIGHT WITHIN REACH. WILL CONTINUE TO MONITOR PT.
--- NOTE | 2022-04-03 07:27 | NUR ---
noc rn note needs attended. report given to Aliyah for continuity of care.
[2022-04-03] MEDS: PANTOPRAZOLE 40 MG TABLET.DR PO SCH (08:14)
[2022-04-03] MEDS: LEVOTHYROXINE SODIUM 50 MCG TABLET PO SCH (08:14)
[2022-04-03] MEDS: ENSURE ENLIVE CHOC 237 ML CAN PO SCH (08:21)
[2022-04-03] MEDS: MULTIPLE VIT (LYCOPENE/FA/MV,CA,IRON,MIN/LUT)1 TAB PO SCH (08:31)
[2022-04-03] MEDS: DOCUSATE SODIUM 250 MG CAPSULE PO SCH (08:31)
[2022-04-03] MEDS: SENNOSIDES/DOCUSATE SODIUM 1 TAB TABLET PO SCH (08:31)
[2022-04-03] MEDS: CALCIUM CARBONATE (1250) 500 MG TABLET PO SCH (08:31)
[2022-04-03] MEDS: FOLIC ACID 1 MG TABLET PO SCH (08:32)
[2022-04-03] MEDS: MAGNESIUM OXIDE 400 MG TABLET PO SCH (08:32)
--- NOTE | 2022-04-03 09:13 | NUR ---
RN NOTE PT C/O BACK PAIN WITH PAIN SCALE LEVEL OF 8/10 AND REQUESTED FOR HER PAIN MEDICATION. OXYCODONE IR 15MG GIVEN ORDERED PRN Q6HRS FOR SEVERE PAIN. WILL MONITOR AND REASSESS PT.
[2022-04-03] MEDS: HYDROCODONE/APAP 5/325MG TABLET PO PRN (12:15)
--- NOTE | 2022-04-03 12:21 | NUR ---
RN NOTE PT C/O BACK PAIN WITH PAIN SCALE LEVEL OF 6/10 AND REQUESTED FOR HER PAIN MEDICATION. NORCO 5/325MG 1 TAB GIVEN ORDERED PRN Q4HRS FOR PAIN. WILL MONITOR AND REASSESS PT.
--- NOTE | 2022-04-03 12:50 | NUR ---
SPECTACLE TRUER NOTE PT DISCHARGED TO [facility] FOR CONTINUITY OF CARE. PT A/O X4, ABLE TO MAKE NEEDS KNOWN. PT'S BROTHER IS AT BEDSIDE. PT IS ON O2 AT 2L/MIN VIA NASAL CANNULA, TOLERATING WELL WITH SPO2 AT 95%. NO SOB NOTED. NOT IN ANY SIGN OF RESPIRATORY DISTRESS. VITAL SIGNS TAKEN, STABLE, AND RECORDED. PT REFUSED BODY ASSESSMENTS AND PHOTOGRAPHS OF SKIN ISSUES. ALL BELONGINGS ACCOUNTED FOR. DISCHARGED INSTRUCTIONS AND HEALTH TEACHINGS INCLUDING THE PAIN MEDICATIONS ORDERED AND CONTINUATION OF IV ANTIBIOTICS X 5DAYS EXPLAINED TO THE PT AND TO HER BROTHER AT BEDSIDE. PT AND HER BROTHER VERBALIZED UNDERSTANDING. IV ACCESS ON MARK G#18 MIDLINE INTACT AND PATENT. IV ACCESS NOT REMOVED PER FACILITY'S REQUEST, DUE TO IV ANTIBIOTICS ORDER. REPORT GIVEN EARLIER TO RACHEL BARTON OF [facility]. PT LEFT THE UNIT AT 1245 VIA GURNEY ACCOMPANIED BY 3 BRIM POUNCER MACHINE OPERATOR VIA AMBULANCE. MD AND CHARGED NURSE AWARE OF DISCHARGED.
== END 2022-04-03 12:45 | DRG 641 ==
LOC: ER 11:07 → TELE 17:18 → MED 03-28 12:40 → TELE 03-29 08:55 → MED 03-30 11:25
PROVIDERS: ADMIT Student in an Organized Health Care Education/Training Program; ATTEND Nurse Practitioner Acute Care
PROC: 05HB33Z Insertion of Infusion Device into Right Basilic Vein, Percutaneous Approach (ICD-10-PCS; principal; 2022-03-27)
DX: E87.6 Hypokalemia (principal); C34.90 Malignant neoplasm of unspecified part of unspecified bronchus or lung; C78.7 Secondary malignant neoplasm of liver and intrahepatic bile duct; C79.51 Secondary malignant neoplasm of bone; C79.31 Secondary malignant neoplasm of brain; D69.6 Thrombocytopenia, unspecified; G35 Multiple sclerosis; Z20.822 Contact with and (suspected) exposure to COVID-19; M06.9 Rheumatoid arthritis, unspecified; Z90.49 Acquired absence of other specified parts of digestive tract; Z90.710 Acquired absence of both cervix and uterus; Z88.0 Allergy status to penicillin; Z79.899 Other long term (current) drug therapy; E83.51 Hypocalcemia; D72.829 Elevated white blood cell count, unspecified; D63.8 Anemia in other chronic diseases classified elsewhere; E03.9 Hypothyroidism, unspecified; L84 Corns and callosities; X58.XXXA Exposure to other specified factors, initial encounter; Y92.9 Unspecified place or not applicable; Z87.891 Personal history of nicotine dependence; Z82.49 Family history of ischemic heart disease and other diseases of the circulatory system; E88.09 Other disorders of plasma-protein metabolism, not elsewhere classified; E83.39 Other disorders of phosphorus metabolism; S61.204A Unspecified open wound of right ring finger without damage to nail, initial encounter; F12.90 Cannabis use, unspecified, uncomplicated
CPT/HCPCS: 36415; 71045-TC; 72157-TC; 72158-TC; 80048-TC; 80076-TC; 81001; 82040-TC; 82310-TC; 82607-TC; 82728-TC; 83540-TC; 83735-TC; 84100-TC; 84132-TC; 85025-TC; 87040-TC; 87081-TC; 87086-TC; 93970-TC; 97110-TC; 97530-TC; A9575; C9113; C9803; G0378; J0610; J0696; J3480; J3490; J7030; J7040; J7050; J7060